=== PATIENT | female | born 1970 | race African-American/Black ===

== ENCOUNTER 2017-12-01 12:36 | Inpatient (IN) | payer OTHER ==
--- NOTE | 2017-12-01 13:28 | PDOC ---
History of Present Illness - General Chief Complaint: Wound Stated Complaint: LT SWOLLEN ANKLE Time Seen by Provider: 12/01/17 13:28 - History of Present Illness Initial Comments: 47 year old female with PMH of SLE (on steroids), asthma, and HTN presenting with left lower medial leg ulcer for the past 3 months. States that she has had this Ulcer back in september and thought she could treat it at home with wound care. It got progressively worse since then. She saw Dr. Cruz who gave her Keflex but she did not take any of it because she did not feel that it was infected at the time. She is coming in because of worsening pain to the site and slightly more painful lesion. Denies fevers, chills, nause,a vomiting, diarrhea, chest pain, SOB, headaches, or other symptoms. 12/01/17 14:10 Past History - Past Medical History Allergies/Adverse Reactions: Allergies Allergy/AdvReac Type Severity Reaction Status Date / Time aspirin Allergy Verified 12/01/17 12:37 ciprofloxacin [From Cipro] Allergy Verified 12/01/17 12:37 ciprofloxacin HCl Allergy Verified 12/01/17 12:37 [From Cipro] Home Medications: Ambulatory Orders Acetaminophen [Tylenol] 650 mg PO DAILY PRN 12/01/17 Albuterol Sulfate Inhaler - [Ventolin HFA Inhaler -] 1 puff IH 12/01/17 Amlodipine Besylate [Norvasc -] 5 mg PO DAILY 12/01/17 Hydroxychloroquine Sulfate [Plaquenil] 200 mg PO BID 12/01/17 Losartan Potassium mg PO DAILY 12/01/17 Montelukast Sodium [Singulair] 10 mg PO DAILY 12/01/17 Pantoprazole Sodium [Protonix] 40 mg PO DAILY 12/01/17 Warfarin Sodium [Coumadin] 8 mg PO DAILY 12/01/17 predniSONE [Deltasone -] 5 mg PO DAILY 12/01/17 Amox-Tr/K Cl [Augmentin - 875Mg Tablet] 1 tab PO BID #14 tablet 12/02/17 Anemia: Yes Asthma: Yes Cancer: No Cardiac Disorders: No CVA: No COPD: No CHF: No Dementia: Yes Diabetes: No GI Disorders: No Disorders: No HTN: Yes Hypercholesterolemia: No Liver Disease: No Seizures: No Thyroid Disease: No - Surgical History Abdominal Surgery: Yes Appendectomy: No Cardiac Surgery: No Cholecystectomy: No Lung Surgery: No Neurologic Surgery: No - Immunization History Td Vaccination: No TDAP Vaccination: No Immunization Up to Date: No - Suicide/Smoking/Psychosocial Hx Smoking Status: No Smoking History: Former smoker Years of Tobacco Use: 20 Have you smoked in the past 12 months: No Number of Cigarettes Smoked Daily: 0 If you are a former smoker, when did you quit?: 2007 Information on smoking cessation initiated: No Hx Alcohol Use: No Drug/Substance Use Hx: No Hx Substance Use Treatment: No Review of Systems - Review of Systems Constitutional: No: Chills, Diaphoresis, Fever HEENTM: No: Blurred Vision, Tearing Respiratory: No: Cough, Shortness of Breath Cardiac (ROS): Yes: Edema. No: Chest Pain ABD/GI: No: Diarrhea, Nausea, Vomiting : No: Burning, Dysuria, Discharge Musculoskeletal: No: Back Pain, Gout, Joint Pain Integumentary: Yes: Lesions. No: Bruising Neurological: No: Headache, Numbness Psychiatric: No: Anxiety, Depression Hematologic/Lymphatic: Yes: Blood Clots. No: Anemia *Physical Exam - Vital Signs Last Vital Signs Temp Pulse Resp BP Pulse Ox 98.3 F 94 H 18 134/104 99 12/01/17 12:38 12/01/17 12:38 12/01/17 12:38 12/01/17 12:38 12/01/17 12:38 - Physical Exam General Appearance: Yes: Nourished, Appropriately Dressed. No: Apparent Distress HEENT: positive: EOMI, ANGIE, Normal ENT Inspection, Normal Voice Neck: positive: Trachea midline, Normal Thyroid, Supple. negative: Tender, Rigid Respiratory/Chest: positive: Lungs Clear, Normal Breath Sounds. negative: Chest Tender, Respiratory Distress, Accessory Muscle Use Cardiovascular: positive: Regular Rhythm, Regular Rate Gastrointestinal/Abdominal: positive: Normal Bowel Sounds, Flat, Soft. negative : Tender Musculoskeletal: negative: Normal Inspection (TTP over left medial lower leg at area of 3 cm ulcer. No obvious drainage and only seems to extend into the dermal layer and punched out in appearance.), Decreased Range of Motion Extremity: positive: Normal Capillary Refill, Normal Range of Motion, Tender. negative: Normal Inspection Integumentary: positive: Normal Color, Dry, Warm Neurologic: positive: assurance senior manager insurance II-XII NML intact, Fully Oriented, Alert, Normal Mood/ Affect, Normal Response, Motor Strength 09/11 ED Treatment Course - LABORATORY CBC & Chemistry Diagram: 12/02/17 06:15 12/02/17 06:15 Medical Decision Making - Medical Decision Making 47 year old female with PMH of LL extremity DVTs presenting with left lower extremity slight edema and and left medial lower leg ulcer concerning for overlying infection. No systemic signs but given patient's chronic steroid use and autoimmune disorder (lupus) patient will be brought in for IV abx under Dr. Mason. 12/01/17 17:20 *DC/Admit/Observation/Transfer Diagnosis at time of Disposition: Ulcer of left lower leg Qualifiers: Non-pressure ulcer stage: unspecified non-pressure ulcer stage Qualified Code(s ): L97.929 - Non-pressure chronic ulcer of unspecified part of left lower leg with unspecified severity - Discharge Dispostion Disposition: HOME Condition at time of disposition: Stable - Prescriptions - Referrals - Patient Instructions - Post Discharge Activity
[2017-12-01 14:15] LABS: BASO % 0.6 % (0-2.0); EOS % 1.7 % (0-4.5); HEMATOCRIT 36.9 % (32.4-45.2); LYMPH % 22.4 % (8-40); MCH 28.6 pg (25.7-33.7); MCHC 32.7 g/dl (32.0-36.0); MEAN CELL VOLUME 87.5 fl (80-96); MEAN PLT VOLUME 8.3 fl (7.5-11.1); MONO % 7.1 % (3.8-10.2); NEUT % 68.2 % (42.8-82.8); PLATELET COUNT 143 K/MM3 (134-434); RBC 4.21 M/mm3 (3.60-5.2); WHITE BLOOD COUNT 5.7 K/mm3 (4.0-10.0)
[2017-12-01 14:43] LABS: ALBUMIN 3.3 g/dl (3.4-5.0); ANION GAP 8 (8-16); BILIRUBIN,TOTAL 0.4 mg/dL (0.2-1.0); BLOOD UREA NITROGEN 17 mg/dL (7-18); CALCIUM 8.3 mg/dL (8.5-10.1); CHLORIDE 108 mmol/L (98-107); CO2 26 mmol/L (21-32); CREATININE 1.2 mg/dL (0.55-1.02); GLUCOSE,RANDOM 67 mg/dL (74-106); POTASSIUM 3.5 mmol/L (3.5-5.1); SGOT/AST 17 U/L (15-37); SGPT/ALT 27 U/L (12-78); SODIUM 142 mmol/L (136-145); TOT PROT 7.3 g/dl (6.4-8.2)
[2017-12-01 14:44] LABS: ALK PHOS 76 U/L (45-117)
[2017-12-01 15:13] LABS: INR 1.86 (0.82-1.09)
[2017-12-01] MEDS ORDERED: CLINDAMYCIN 900 MG PREMIX IVPB 900 MG/50 ML BAG IVPB ONE ×2 (17:14→17:40)
[2017-12-01] MEDS ORDERED: VANCOMYCIN 1 GRAM (PRE-DOCKED) 1,000 MG/250 ML BAG IVPB ONE (17:15)
--- NOTE | 2017-12-01 17:16 | PDOC ---
Attending Attestation - Resident Resident Name: Willem Leahy - ED Attending Attestation I have performed the following: I have examined & evaluated the patient, The case was reviewed & discussed with the resident, I agree w/resident's findings & plan, Exceptions are as noted - Physicial Exam PE: 12/01/17 17:13 awake alert lungs clear bilaterally heart rrr no mrg abd soft nt nd. she has left leg swelling erythema there is a small well-circumscribed medial lower calf wound and does have a pink base no exudates distally she has 2+ DP and PT pulses. 12/01/17 17:14 - Medical Decision Making 12/01/17 17:14 47-year-old female history of this currently on immunomodulators here today complaining of left leg swelling and pain. Patient states she has had a wound there is a no fevers no chills but does have pain On exam she has left leg swelling erythema there is a small well-circumscribed EDL lower calf and does have a pink base no exudates distally she has 2+ DP and PT pulses Differential includes cellulitis, DVT, systemic infection. Due to the fact the patient is immunocompromised consider admission for IV antibiotics for observation Doppler to rule out basic lab work <Nicolasa Yanes - Last Filed: 12/01/17 17:12> - HPI HPI: 12/01/17 17:18 The patient is a 47-year-old female with past medical history of SLE, DVT, asthma, COPD, HTN, and LUPUS presents to the emergency department with a L. leg wound. The patient states the pain presented 2 days ago with increased swelling and warmth to the L. leg. The patient reports following up with Dr. Cruz on the 17 of November, she was prescribed Keflex, denies taking the abx. The patient reports she has an appointment for wound care next wednesday. Denies fever chills, cough or a headache. Denies chest pain or shortness of breath. Denies numbness, tingling or loss of sensation. Denies vertigo or dizziness. Denies urinary or bowel problems. Denies nausea, vomiting, diarrhea or constipation. Allergies: aspirin, ciprofloxacin HCl and ciprofloxacin Surgical history: Hysterectomy Social history: PCP: Dr. Blayne Cruz. - Medical Decision Making 12/01/17 17:18 Documentation prepared by Shavonne Dias, acting as medical massage therapist for Nicolasa Yanes MD. <Shavonne Dias - Last Filed: 12/01/17 17:18>
[2017-12-01] MEDS: VANCOMYCIN 1,000 MG in DEXTROSE 5%-WATER - 250 ML IVPB ONE ×2 (17:24→17:43)
--- NOTE | 2017-12-01 19:11 | HP ---
Admitting History and Physical - Primary Care Physician PCP: Dr. 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 Patient endorses 3 days LLE swelling and 2 days of pus, pain, warmth of the ulcer on the L medial ankle. Patient has the ulcer since September and was going to the wound center next Wednesday for the first time. She saw her PMD on 11/17 and was given keflex to take but she did not take it. She denies any fever, chill, numbness or tingling in LE, n/v, chest pain, shortness of breath. History Source: Patient Limitations to Obtaining History: No Limitations - Past Medical History Cardiovascular: Yes: Deep Vein Thrombosis (Most recent one in 2011. Has IVC filter.), HTN Pulmonary: Yes: Asthma, COPD ...LMP: 06/12/11 Rheumatology: Yes: Lupus - Past Surgical History Past Surgical History: Yes: Hysterectomy - Smoking History Smoking history: Former smoker Have you smoked in the past 12 months: No Aproximately how many cigarettes per day: 0 If you are a former smoker, when did you quit?: 2007 - Alcohol/Substance Use Hx Alcohol Use: No - Social History Usual Living Arrangement: Yes: With Child History of Recent Travel: No Home Medications - Allergies Allergies/Adverse Reactions: Allergies Allergy/AdvReac Type Severity Reaction Status Date / Time aspirin Allergy Verified 12/01/17 12:37 ciprofloxacin [From Cipro] Allergy Verified 12/01/17 12:37 ciprofloxacin HCl Allergy Verified 12/01/17 12:37 [From Cipro] - Home Medications Home Medications: Ambulatory Orders Acetaminophen [Tylenol] 650 mg PO DAILY PRN 12/01/17 Albuterol Sulfate Inhaler - [Ventolin Hfa Inhaler -] 1 puff IH 12/01/17 Amlodipine Besylate [Norvasc -] 5 mg PO DAILY 12/01/17 Hydroxychloroquine Sulfate [Plaquenil] 200 mg PO BID 12/01/17 Losartan Potassium mg PO DAILY 12/01/17 Montelukast Sodium [Singulair] 10 mg PO DAILY 12/01/17 Pantoprazole Sodium [Protonix] 40 mg PO DAILY 12/01/17 Warfarin Sodium [Coumadin] 8 mg PO DAILY 12/01/17 predniSONE [Deltasone -] 5 mg PO DAILY 12/01/17 Review of Systems - Review of Systems Constitutional: reports: No Symptoms Eyes: reports: No Symptoms HENT: reports: No Symptoms Neck: reports: No Symptoms Cardiovascular: reports: No Symptoms Respiratory: reports: No Symptoms Gastrointestinal: reports: No Symptoms Genitourinary: reports: No Symptoms Musculoskeletal: reports: No Symptoms Integumentary: reports: Wound Neurological: reports: No Symptoms Endocrine: reports: No Symptoms Physical Examination Vital Signs: Vital Signs Temperature 98.3 F 12/01/17 12:38 Pulse Rate 94 H 12/01/17 12:38 Respiratory Rate 18 12/01/17 12:38 Blood Pressure 134/104 12/01/17 12:38 O2 Sat by Pulse Oximetry (%) 99 12/01/17 12:38 Constitutional: Yes: Well Nourished, No Distress, Calm Eyes: Yes: Conjunctiva Clear, EOM Intact HENT: Yes: Atraumatic, Normocephalic Neck: Yes: Supple, Trachea Midline Cardiovascular: Yes: Regular Rate and Rhythm, S1, S2. No: Murmur Respiratory: Yes: CTA Bilaterally Gastrointestinal: Yes: Normal Bowel Sounds, Soft. No: Distention, Tenderness Edema: Yes Edema: LLE: Trace, RLE: Trace Peripheral Pulses WNL: Yes Integumentary: Yes: Other (LLE medial ulcer 2x2x0.2 circular shape) Neurological: Yes: Alert, Oriented Labs: CBC, BMP 12/01/17 14:06 12/01/17 14:06 Imaging - Results X-ray: Report Reviewed, Image Reviewed Assessment/Plan 47 yo F admitted for purulent leg ulcer with suspected cellulitis. Purulent lower left medial ulcer, w/ suspected cellulitis - Received clinamycin in ED - Cont. clinda and zosyn considering pt is immunosuppressed - ID consult Elevated Cr - Unknown baseline - Gentle hydration - Cont. to trend - Hold losartan Subtherapeutic INR - cont. coumadin and trend daily coag SLE - stable, cont. predisone and plaquineil h/o Multiple DVT - cont. coumadin asthma and COPD - stable - cont. singulair and ventolin HTN - cont. norvasc and hold losartan due to ELISEO FEN - NS 72cc/hr - sodium controlled diet dvt ppx: on coumadin dispo: monitor on med-surg Darrell Caballero PGY3 Visit type - Emergency Visit Emergency Visit: Yes Care time: The patient presented to the Emergency Department on the above date and was hospitalized for further evaluation of their emergent condition. - New Patient This patient is new to me today: Yes Date on this admission: 12/01/17 - Critical Care Critical Care patient: No Hospitalist Screening - Colonoscopy Questionnaire Colonoscopy Questionnaire: Colonoscopy Questionnaire - Patient: 50 - 75 years old and never had a screening colonoscopy: Unknown History of colon or rectal polyps, or CA: Unknown History of IBD, Crohn's disease or UC: Unknown History of abdominal radiation therapy as a child: Unknown - Relative: 1 with colon or rectal CA, or polyps at age 60 or younger: Unknown Colon or rectal CA diagnosed at age 45 or younger: Unknown Multiple relatives with colon or rectal CA: Unknown - Outcome: Screening Result: Negative Screen
[2017-12-01] MEDS ORDERED: ALBUTEROL SO4 8 GM HFA INHALER IH PRN (19:30)
--- NOTE | 2017-12-01 19:38 | PN ---
Teaching Attending Note Name of Resident: Darrell Caballero ATTENDING PHYSICIAN STATEMENT I saw and evaluated the patient. I reviewed the resident's note and discussed the case with the resident. I agree with the resident's findings and plan as documented. SUBJECTIVE: 47 y/o F with new left lower extremity cellulitis and ulcerations. Patient was prescribed antibiotics but did not take her medication. OBJECTIVE: GEN: A&Ox3 in no acute distress, afebrile HEENT: NC, PERRLA, EOMI CVS: RRR Lungs: CTA, no wheezing Abd: Soft, nontender, BS+, no guarding or rebound. Ext: nl ROM, pulse 2+, no edema Skin: LLE medial superficial ulceration, no drainage, no erythema appreciated, calor. CBCD WBC 5.7 K/mm3 (4.0-10.0) 12/01/17 14:06 RBC 4.21 M/mm3 (3.60-5.2) 12/01/17 14:06 Hgb 12.0 GM/dL (10.7-15.3) 12/01/17 14:06 Hct 36.9 % (32.4-45.2) 12/01/17 14:06 MCV 87.5 fl (80-96) 12/01/17 14:06 MCHC 32.7 g/dl (32.0-36.0) 12/01/17 14:06 RDW 15.0 % (11.6-15.6) 12/01/17 14:06 Plt Count 143 K/MM3 (134-434) 12/01/17 14:06 MPV 8.3 fl (7.5-11.1) 12/01/17 14:06 CMP Sodium 142 mmol/L (136-145) 12/01/17 14:06 Potassium 3.5 mmol/L (3.5-5.1) 12/01/17 14:06 Chloride 108 mmol/L (98-107) H 12/01/17 14:06 Carbon Dioxide 26 mmol/L (21-32) 12/01/17 14:06 Anion Gap 8 (8-16) 12/01/17 14:06 BUN 17 mg/dL (7-18) 12/01/17 14:06 Creatinine 1.2 mg/dL (0.55-1.02) H 12/01/17 14:06 Creat Clearance w eGFR 48.15 (>60) 12/01/17 14:06 Calcium 8.3 mg/dL (8.5-10.1) L 12/01/17 14:06 Total Bilirubin 0.4 mg/dL (0.2-1.0) 12/01/17 14:06 AST 17 U/L (15-37) 12/01/17 14:06 ALT 27 U/L (12-78) 12/01/17 14:06 Alkaline Phosphatase 76 U/L (45-117) 12/01/17 14:06 Total Protein 7.3 g/dl (6.4-8.2) 12/01/17 14:06 Albumin 3.3 g/dl (3.4-5.0) L 12/01/17 14:06 ASSESSMENT AND PLAN: LLE cellulitis and ulceration- Clindamycin and tylenol prn Case d/w resident and plans as documented.
[2017-12-01] MEDS ORDERED: PIPERACILLIN/TAZOB 3.375 GM 3.375 GM in DEXTROSE 5%-WATER - 50 ML IVPB ONE (19:45)
[2017-12-01] MEDS ORDERED: SODIUM CHLORIDE 500 ML IV STA (19:48)
[2017-12-01] MEDS ORDERED: MONTELUKAST NA 10 MG TABLET PO SCH (22:00)
[2017-12-01] MEDS: HYDROXYCHLOROQUINE SO4 200 MG TABLET (FP) PO SCH (22:16)
[2017-12-02 00:53] VITALS: BMI 40.1
[2017-12-02] MEDS: CLINDAMYCIN 600MG PREMIX IVPB 600 MG/50 ML BAG IVPB SCH ×2 (01:23→09:58)
[2017-12-02] MEDS ORDERED: PIPERACILLIN/TAZOB 3.375 GM 3.375 GM in DEXTROSE 5%-WATER - 50 ML IVPB ONE ×2 (02:00→08:00)
[2017-12-02] MEDS ORDERED: CLINDAMYCIN 600MG PREMIX IVPB 600 MG/50 ML BAG IVPB ONE ×2 (02:00→10:00)
[2017-12-02 08:14] LABS: HEMATOCRIT 35.2 % (32.4-45.2); HEMOGLOBIN 11.6 GM/dL (10.7-15.3); MCH 28.7 pg (25.7-33.7); PLATELET COUNT 142 K/MM3 (134-434); RBC 4.04 M/mm3 (3.60-5.2); WHITE BLOOD COUNT 3.9 K/mm3 (4.0-10.0)
[2017-12-02 08:22] LABS: INR 1.91 (0.82-1.09); PROTHROMBIN TIME (PATIENT) 21.6 SEC (9.7-13.0)
[2017-12-02 08:24] LABS: ACTIVATED PTT 33.2 SECONDS (25.2-36.5)
[2017-12-02 08:32] LABS: ANION GAP 9 (8-16); BLOOD UREA NITROGEN 16 mg/dL (7-18); CALCIUM 8.1 mg/dL (8.5-10.1); CHLORIDE 111 mmol/L (98-107); CO2 24 mmol/L (21-32); GLUCOSE,RANDOM 74 mg/dL (74-106); MAGNESIUM 2.1 mg/dL (1.8-2.4); PHOSPHOROUS 3.2 mg/dL (2.5-4.9); POTASSIUM 3.9 mmol/L (3.5-5.1); SODIUM 144 mmol/L (136-145)
[2017-12-02 08:33] LABS: CREATININE 0.9 mg/dL (0.55-1.02)
[2017-12-02] MEDS: HYDROXYCHLOROQUINE SO4 200 MG TABLET (FP) PO SCH (09:58)
[2017-12-02] MEDS ORDERED: PANTOPRAZOLE 40 MG TABLET (FP) PO SCH (10:00)
[2017-12-02] MEDS ORDERED: amLODIPine BESYLATE 5 MG TABLET (FP) PO SCH (10:00)
[2017-12-02] MEDS ORDERED: WARFARIN NA 7.5 MG TABLET (FP) PO SCH (10:00)
[2017-12-02] MEDS ORDERED: predniSONE 5 MG TABLET (UD) PO SCH (10:00)
[2017-12-02] MEDS ORDERED: ACETAMINOPHEN 325 MG TABLET (FP) PO PRN (11:53)
[2017-12-02 12:29] VITALS: BP 119/72; PULSE 75; TEMP 98.4
--- NOTE | 2017-12-02 13:03 | PN ---
Progress Note (short form) - Note Progress Note: ID Consult dictated Non healing L leg ulcer Cellulitus L LE Hx SLE on immunosupressive tx Quinolone allergy Substitute po Augmentin 875mg bid 10-14d Follow up Wound care center
--- NOTE | 2017-12-02 15:06 | CONS ---
INFECTIOUS DISEASE CONSULTATION DATE OF CONSULTATION: DATE OF DICTATION: 12/02/2017 Patient is a 47-year-old female with a history of lupus on Plaquenil and prednisone, evaluated for cellulitis and nonhealing ulcer of the left lower extremity. She initially developed a wound on her distal left lower extremity, which was pruritic. She began to scratch it. She subsequently developed an ulcer which became progressively bigger. She began to notice increasing pain and swelling around the ulceration and a purulent drainage. She was prescribed Keflex as an outpatient. However, she did not take the prescribed medication. She presented to the hospital where an x-ray was negative for osteomyelitis. Doppler exam was negative for DVT. She was empirically treated with clindamycin and Zosyn. She has a history of SLE and is on Plaquenil and prednisone. She denies prior history of serious soft tissue infection or history of MRSA. No associated fever or chills. PAST MEDICAL HISTORY: Positive for lupus, asthma, hypertension. PAST SURGICAL HISTORY: Status post hysterectomy. ALLERGIES: ASPIRIN and CIPROFLOXACIN. MEDICATIONS: Include Tylenol, Ventolin, Norvasc, losartan, Singulair, Protonix, Coumadin, Plaquenil, prednisone 5 mg. SOCIAL HISTORY: Former smoker. SYSTEMS REVIEW: Neurologic: No loss of consciousness, seizure activity, focal weakness. Cardiac: Negative chest pain or palpitations. Respiratory: Negative cough or sputum production. Gastrointestinal: Negative vomiting or diarrhea. Genitourinary: Negative for urinary tract infection. LABORATORY DATA: White count 3.9, hematocrit 35.2, platelet count 142. BUN 16, creatinine 0.9. C-reactive protein less than 0.3. Liver enzymes normal. ESR 55. PHYSICAL EXAMINATION: General: Patient is awake and alert, in no acute distress. Vital Signs: Temperature 98.4; blood pressure 119/72; pulse 75, regular; respirations 18 per minute. HEENT: Sclerae are anicteric. Heart: Sounds S1, S2. Lungs: Clear. Abdomen: Obese, soft, nontender. Left Lower Extremity: There is an approximately 1.5 cm diameter ulceration present above the left medial malleolus. There is no purulent drainage noted. No significant erythema surrounding the wound. The distal lower extremity is warm to touch. IMPRESSION: 1. Infected, chronic left lower extremity skin ulcer. 2. Cellulitis, left lower extremity. 3. History of lupus on immunosuppressive therapy. 4. QUINOLONE allergy. May substitute Augmentin 875 mg p.o. b.i.d. for 10-14 days, local wound care, follow up in the wound care center as an outpatient. Thank you for the kind referral. ALBERTO MEDINA M.D. [id number]
--- NOTE | 2017-12-02 16:18 | PN ---
Teaching Attending Note Name of Resident: Stacie Robertson ATTENDING PHYSICIAN STATEMENT I saw and evaluated the patient. I reviewed the resident's note and discussed the case with the resident. I agree with the resident's findings and plan as documented. SUBJECTIVE: Patient has no complaints. OBJECTIVE: Vital Signs Period Temp Pulse Resp BP Sys/Benavides Pulse Ox Last 24 Hr 97.8 F-98.8 F 68-75 18-20 119-133/69-85 98-99 HEART: S1S2, RRR LUNGS: Clear ABDOMEN: Obese, soft, non-tender, non-distended, normal BS EXTREMITIES: No edema. 1 cm round clean ulcer of medial lower left leg with no erythema, induration, drainage, tenderness Laboratory Results - last 24 hr 12/02/17 12/02/17 12/02/17 06:15 06:15 06:15 WBC 3.9 L RBC 4.04 Hgb 11.6 Hct 35.2 MCV 87.0 MCH 28.7 MCHC 33.0 RDW 15.0 Plt Count 142 MPV 9.0 PT with INR 21.60 H* INR 1.91 H PTT (Actin FS) 33.2 Sodium 144 Potassium 3.9 Chloride 111 H Carbon Dioxide 24 Anion Gap 9 BUN 16 Creatinine 0.9 Creat Clearance w eGFR > 60 Random Glucose 74 Calcium 8.1 L Phosphorus 3.2 Magnesium 2.1 ASSESSMENT AND PLAN: 1. Infected left leg venous ulcer with cellulitis - Significantly improved - Discontinue Zosyn, Clindamycin - Discharge on Augmentin - Has appointment at [facility]ound Center 12/08 2. Acute kidney injury - Improved with IV fluid and holding Cozaar 3. SLE - Continue predisone, Plaquenil 4. History of DVTs - Continue Coumadin 5. Asthma/COPD - Stable - Continue Singulair, albuterol 6. HTN - Continue Norvasc - Cozaar held secondary to ELISEO 7. Morbid obesity with BMI 40.1
--- NOTE | 2017-12-02 16:44 | DS ---
Physical Exam: SUBJECTIVE: Patient seen and examined. no complaints. left leg pain has improved. denies fevers, n/v. OBJECTIVE: Vital Signs Period Temp Pulse Resp BP Sys/Benavides Pulse Ox Last 24 Hr 97.8 F-98.8 F 68-75 18-20 119-133/69-85 98-99 PHYSICAL EXAM GENERAL: The patient is awake, alert, and fully oriented, in no acute distress. HEAD: Normal with no signs of trauma. EYES: PERRL, extraocular movements intact, sclera anicteric, conjunctiva clear. ENT: oropharynx clear without exudates, moist mucous membranes. NECK: Trachea midline, full range of motion, supple. LUNGS: Breath sounds equal, clear to auscultation bilaterally, no wheezes, no crackles, no accessory muscle use. HEART: Regular rate and rhythm, S1, S2 without murmur, rub or gallop. ABDOMEN: Soft, nontender, nondistended, normoactive bowel sounds, EXTREMITIES: 2+ radial and DP pulses, warm, well-perfused, no edema. left medial at ankle closed ulcer without surrounding erythema, tenderness, no underlying fluctuance. no discharge and skin is intact. NEUROLOGICAL: Cranial nerves II through XII grossly intact. Normal speech, gait normal. 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 Patient endorses 3 days LLE swelling and 2 days of pus, pain, warmth of the ulcer on the L medial ankle. Patient has the ulcer since September and was going to the wound center next Wednesday for the first time. She saw her PMD on 11/17 and was given keflex to take but she did not take it. She denies any fever, chill, numbness or tingling in LE, n/v, chest pain, shortness of breath. The pain improved. She remained afebrile without leucocytosis. Evaluated by ID and recommend augmentin 875 BID for 14 days. Pt has wound care follow-up this upcoming wednesday. INR in the hospital was sub-therapeutic, she was recommended to follow-up with her pcp to haver her inr repeated in few days to recheck levels. Minutes to complete discharge: 35 Discharge Summary Reason For Visit: ULCERATIVE LESION; LUPUS ERYTHEMATOSIS Condition: Stable - Instructions Diet, Activity, Other Instructions: You were evaluated for an ulcer on your left leg and acute kidney injury. Please follow-up with Dr. Cruz within one week for post-hospital evaluation and attend your appointment at [facility] on WednesdayDecember 08. Please speak with Dr. Cruz about your Coumadin dosing, your INR was not therapeutic while in the hospital, you will need to have your level tested again in a few days. Complete the antibiotic, Augmentin 1 tablet twice daily for 14 days, start taking it this afternoon (December 02 to end the last dose on December 16) . Drink plenty of water. Continue your home medications as prescribed. If you develop worsening leg pain, fevers, vomiting, redness or discharge at the ulcer site or any new or worsening symptoms please return to the hospital. Referrals: Blayne Cruz MD [Primary Care Provider] - Disposition: HOME - Home Medications Comprehensive Discharge Medication List: Ambulatory Orders Acetaminophen [Tylenol] 650 mg PO DAILY PRN 12/01/17 Albuterol Sulfate Inhaler - [Ventolin HFA Inhaler -] 1 puff IH 12/01/17 Amlodipine Besylate [Norvasc -] 5 mg PO DAILY 12/01/17 Hydroxychloroquine Sulfate [Plaquenil] 200 mg PO BID 12/01/17 Losartan Potassium mg PO DAILY 12/01/17 Montelukast Sodium [Singulair] 10 mg PO DAILY 12/01/17 Pantoprazole Sodium [Protonix] 40 mg PO DAILY 12/01/17 Warfarin Sodium [Coumadin] 8 mg PO DAILY 12/01/17 predniSONE [Deltasone -] 5 mg PO DAILY 12/01/17 Amox-Tr/K Cl [Augmentin - 875Mg Tablet] 1 tab PO BID #14 tablet 12/02/17 This patient is new to me today: Yes Date on this admission: 12/03/17 Emergency Visit: No Critical Care patient: No - Discharge Referral Referred to [facility] No
[2017-12-02] MEDS ORDERED: WARFARIN NA 3 MG, WARFARIN NA 5 MG PO SCH (18:00)
== END 2017-12-02 13:54 | disposition home or self-care (01) | DRG 383 ==
LOC: JER 12:36 → JERBED 17:37 → OBSVTOIN 19:01 → J7W 20:19
PROVIDERS: ADMIT Internal Medicine; ATTEND Internal Medicine
DX: L03.116 Cellulitis of left lower limb (principal); N17.9 Acute kidney failure, unspecified; D68.8 Other specified coagulation defects; L97.828 Non-pressure chronic ulcer of other part of left lower leg with other specified severity; M32.9 Systemic lupus erythematosus, unspecified; E66.01 Morbid (severe) obesity due to excess calories; Z68.41 Body mass index [BMI] 40.0-44.9, adult; I10 Essential (primary) hypertension; Z79.52 Long term (current) use of systemic steroids; Z87.891 Personal history of nicotine dependence; Z86.718 Personal history of other venous thrombosis and embolism; J44.9 Chronic obstructive pulmonary disease, unspecified; Z90.710 Acquired absence of both cervix and uterus
CPT/HCPCS: 36415; 73590-TC-LT-FY; 80048; 80053; 83735; 84100; 85025; 85027; 85610; 85730; 86140; 87040; 87070; 87186; 87205; 93971-TC; 99285-25; G0378

== ENCOUNTER 2017-12-31 12:11 | Emergency (ER) | payer OTHER ==
[2017-12-31 12:26] VITALS: BP 117/72; PULSE 91; TEMP 100.1; BMI 35.9
--- NOTE | 2017-12-31 14:00 | PDOC ---
History of Present Illness - General Chief Complaint: Ear Problem Stated Complaint: RIGHT EAR IN PAIN/FEVER Time Seen by Provider: 12/31/17 13:56 History Source: Patient Exam Limitations: Clinical Condition - History of Present Illness Initial Comments: 12/31/17 14:01 Patient with history of diabetes on meds present with complain of 2 day history of right ear pain and swelling. Patient reported fluid drainage from right ear. Denies any other symptoms Timing/Duration: other (2 days) Severity: moderate Past History - Past Medical History Allergies/Adverse Reactions: Allergies Allergy/AdvReac Type Severity Reaction Status Date / Time aspirin Allergy Verified 12/31/17 12:25 ciprofloxacin [From Cipro] Allergy Verified 12/31/17 12:25 ciprofloxacin HCl Allergy Verified 12/31/17 12:25 [From Cipro] Home Medications: Ambulatory Orders Acetaminophen [Tylenol] 650 mg PO DAILY PRN 12/01/17 Albuterol Sulfate Inhaler - [Ventolin HFA Inhaler -] 1 puff IH 12/01/17 Amlodipine Besylate [Norvasc -] 5 mg PO DAILY 12/01/17 Hydroxychloroquine Sulfate [Plaquenil] 200 mg PO BID 12/01/17 Losartan Potassium mg PO DAILY 12/01/17 Montelukast Sodium [Singulair] 10 mg PO DAILY 12/01/17 Pantoprazole Sodium [Protonix] 40 mg PO DAILY 12/01/17 Warfarin Sodium [Coumadin] 8 mg PO DAILY 12/01/17 predniSONE [Deltasone -] 5 mg PO DAILY 12/01/17 Amox-Tr/K Cl [Augmentin - 875Mg Tablet] 1 tab PO BID #14 tablet 12/02/17 Amox-Tr/K Cl [Augmentin - 875Mg Tablet] 1 tab PO BID #14 tablet 12/31/17 Neomycin/Polymyxin B/Hydrocort [Dqhzlnuj-Kkgmfhlov-Cl Ear Susp] 4 drop OT TID 5 Days #1 bottle 12/31/17 Anemia: Yes Asthma: Yes Cancer: No Cardiac Disorders: No CVA: No COPD: No CHF: No Dementia: Yes Diabetes: No GI Disorders: No Disorders: No HTN: Yes Hypercholesterolemia: No Liver Disease: No Seizures: No Thyroid Disease: No Other medical history: LUPUS, ULCER - Surgical History Abdominal Surgery: Yes Appendectomy: No Cardiac Surgery: No Cholecystectomy: No Lung Surgery: No Neurologic Surgery: No Orthopedic Surgery: No - Immunization History Td Vaccination: No TDAP Vaccination: No Immunization Up to Date: No - Suicide/Smoking/Psychosocial Hx Smoking Status: No Smoking History: Former smoker Years of Tobacco Use: 20 Have you smoked in the past 12 months: No Number of Cigarettes Smoked Daily: 0 If you are a former smoker, when did you quit?: 2007 Information on smoking cessation initiated: No Hx Alcohol Use: No Drug/Substance Use Hx: No Substance Use Type: None Hx Substance Use Treatment: No Review of Systems - Review of Systems Able to Perform ROS?: Yes Is the patient limited Albanian proficient: No Constitutional: No: Chills, Diaphoresis, Fever, Loss of Appetite, Malaise, Night Sweats, Weakness, Weight Stable, Unintentional Wgt. Loss, Unexplained wgt Loss, Other HEENTM: Yes: See HPI, Ear Pain (right ), Ear Discharge (right ear). No: Eye Pain, Blurred Vision, Tearing, Recent change in vision, Double Vision, Cataracts , Ocular Prothesis, Nose Pain, Nose Congestion, Tinnitus, Nose Bleeding, Hearing Loss, Throat Pain, Throat Swelling, Mouth Pain, Dental Problems, Difficulty Swallowing, Mouth Swelling, Other Respiratory: No: Cough, Orthopnea, Shortness of Breath, SOB with Exertion, SOB at Rest, Stridor, Wheezing, Productive cough, Hemoptysis, Other Cardiac (ROS): No: Chest Pain, Edema, Irregular Heart Rate, Lightheadedness, Palpitations, Syncope, Chest Tightness, Other ABD/GI: No: Abdominal Distended, Abd. Pain w/ defecation, Blood Streaked Bowels , Constipated, Diarrhea, Difficulty Swallowing, Nausea, Poor Appetite, Poor Fluid Intake, Rectal Bleeding, Vomiting, Indigestion, Abdominal cramping, Tarry Stools, Other Musculoskeletal: No: Back Pain, Gout, Joint Pain, Joint Swelling, Muscle Pain, Muscle Weakness, Neck Pain, Joint Stiffness, Other Integumentary: No: Bruising, Change in Color, Change in Hair/Nails, Dryness, Erythema, Flushing, Lesions, Lumps, Pallor, Pruritus, Rash, Sweating, Other All Other Systems: Reviewed and Negative *Physical Exam - Vital Signs Last Vital Signs Temp Pulse Resp BP Pulse Ox 100.1 F H 91 H 18 117/72 99 12/31/17 12:22 08/24/18 12:22 12/31/17 12:22 12/31/17 12:22 12/31/17 12:22 - Physical Exam Comments: 12/31/17 14:02 GENERAL: Well developed, well nourished. Awake and alert. No acute distress. HEENT: Moderate amount of fluid with mild swelling in right external ear canal. Mild erythema in external ear canal. Left ear normal.Normocephalic, atraumatic. PERRLA, EOMI. No conjunctival pallor. Sclera are non-icteric. Moist mucous membranes. Oropharynx is clear. NECK: Supple. Full ROM. No JVD. Carotid pulses 2+ and symmetric, without bruits. No thyromegaly. No lymphadenopathy. CARDIOVASCULAR: Regular rate and rhythm. No murmurs, rubs, or gallops. Distal pulses are 2+ and symmetric. PULMONARY: No evidence of respiratory distress. Lungs clear to auscultation bilaterally. No wheezing, rales or rhonchi. ABDOMINAL: Soft. Non-tender. Non-distended. No rebound or guarding. No organomegaly. Normoactive bowel sounds. MUSCULOSKELETAL Normal range of motion at all joints. No bony deformities or tenderness. No CVA tenderness. EXTREMITIES: No cyanosis. No clubbing. No edema. No calf tenderness. SKIN: Warm and dry. Normal capillary refill. No rashes. No jaundice. NEUROLOGICAL: Alert, awake, appropriate. Cranial nerves 2-12 intact. No deficits to light touch and temperature in face, upper extremities and lower extremities. No motor deficits in the in face, upper extremities and lower extremities. Normoreflexic in the upper and lower extremities. Normal speech. Toes are down- going bilaterally. Gait is normal without ataxia. PSYCHIATRIC: Cooperative. Good eye contact. Appropriate mood and affect. General Appearance: Yes: Nourished, Appropriately Dressed. No: Apparent Distress Medical Decision Making - Medical Decision Making 12/31/17 14:03 Patient with history of diabetes presenting with complain of 2 days history of right ear pain and now with fever. Exam shows moderate swelling and fluid and right ear canal. Patient stable for outpatient treatment with ENT follow-up *DC/Admit/Observation/Transfer Diagnosis at time of Disposition: Otitis externa Qualifiers: Otitis externa type: unspecified type Chronicity: acute Laterality: right Qualified Code(s): H60.501 - Unspecified acute noninfective otitis externa, right ear - Discharge Dispostion Disposition: HOME Condition at time of disposition: Stable Decision to Admit order: No - Prescriptions Prescriptions: Amox-Tr/K Cl [Augmentin - 875Mg Tablet] 1 tab PO BID #14 tablet Neomycin/Polymyxin B/Hydrocort [Hgeecbik-Jjqdyqazm-Jg Ear Susp] 4 drop OT TID 5 Days #1 bottle - Referrals Referrals: Blayne Cruz MD [Primary Care Provider] - Elio Hammond MD [Staff Physician] - - Patient Instructions Printed Discharge Instructions: Otitis Externa, DI for Otitis Externa Additional Instructions: Take medication as prescribed for symptoms. Take Tylenol as needed for pain. Follow-up will referred ENT for follow-up within next 5 days - Post Discharge Activity
== END 2017-12-31 14:25 | disposition home or self-care (01) ==
LOC: JERFT 12:11
DX: H60.501 Unspecified acute noninfective otitis externa, right ear (principal); J45.909 Unspecified asthma, uncomplicated; I10 Essential (primary) hypertension; E11.9 Type 2 diabetes mellitus without complications; Z87.39 Personal history of other diseases of the musculoskeletal system and connective tissue
CPT/HCPCS: 11042; 29581-LT; 99281-25; A4649; A6197

== ENCOUNTER 2019-03-11 13:53 | Emergency (ER) | payer OTHER ==
[2019-03-11 14:07] VITALS: BMI 34.0
[2019-03-11] MEDS ORDERED: SODIUM CHLORIDE 1,000 ML IV SCH (14:15)
--- NOTE | 2019-03-11 14:34 | PDOC ---
History of Present Illness - General Chief Complaint: Difficulty with Vision Stated Complaint: EYE SIGHT FADING Time Seen by Provider: 03/11/19 14:15 History Source: Patient Exam Limitations: No Limitations - History of Present Illness Initial Comments: 03/11/19 14:33 Paul Villegas is a 48F with PMH SLE on Cellcept and Plaquenil with known L eye exotropia, APLS on Coumadin with known DVT, 3 weeks of conjunctivitis, presenting with worsening vision in L eye. Patient has seen ophthalmology for 3 weeks of conjuctivitis, had to stop Cellcept to help clear infection, eye was itchy but she has recovered well with eye drops, had MORAN related to eye pain. 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 Yesterday was having worsening vision, noticed that she was seeing black spots at bottom of vision and lines, today even worse which prompted ED visit. Denies chemical exposure to eye, head trauma, history of PR or CVA. Denies fever/chills, N/V/C/D, chest pain, SOB, urinary sx, abd pain. PSH: L nephrectomy at [facility], L partial hysterectomy at [facility] 2011 Past History - Past Medical History Allergies/Adverse Reactions: Allergies Allergy/AdvReac Type Severity Reaction Status Date / Time aspirin Allergy Verified 01/14/18 17:30 ciprofloxacin [From Cipro] Allergy Verified 03/11/19 14:04 ciprofloxacin HCl Allergy Verified 03/11/19 14:04 [From Cipro] Home Medications: Ambulatory Orders Acetaminophen [Tylenol] 650 mg PO DAILY PRN 12/01/17 Albuterol Sulfate Inhaler - [Ventolin HFA Inhaler -] 1 puff IH DAILY 12/01/17 Amlodipine Besylate [Norvasc -] 5 mg PO DAILY 12/01/17 Hydroxychloroquine Sulfate [Plaquenil] 200 mg PO BID 12/01/17 Losartan Potassium 25 mg PO DAILY 12/01/17 Montelukast Sodium [Singulair] 10 mg PO DAILY 12/01/17 Pantoprazole Sodium [Protonix] 40 mg PO DAILY 12/01/17 Warfarin Sodium [Coumadin] 8 mg PO DAILY 12/01/17 predniSONE [Deltasone -] 5 mg PO DAILY 12/01/17 Neomycin/Polymyxin B/Hydrocort [Isnfelnp-Ejdwnsgai-Mj Ear Susp] 4 drop OT TID 5 Days #1 bottle 12/31/17 Anemia: Yes Asthma: Yes Cancer: No Cardiac Disorders: No CVA: No COPD: No CHF: No Dementia: No Diabetes: No GI Disorders: No Disorders: No HTN: Yes Hypercholesterolemia: No Liver Disease: No Seizures: No Thyroid Disease: No - Surgical History Abdominal Surgery: Yes Appendectomy: No Cardiac Surgery: No Cholecystectomy: No Lung Surgery: No Neurologic Surgery: No Orthopedic Surgery: No - Immunization History Td Vaccination: No TDAP Vaccination: No Immunization Up to Date: No - Psycho Social/Smoking Cessation Hx Smoking Status: No Smoking History: Never smoked Years of Tobacco Use: 20 Have you smoked in the past 12 months: No Number of Cigarettes Smoked Daily: 0 If you are a former smoker, when did you quit?: 2007 Hx Alcohol Use: No Drug/Substance Use Hx: No Substance Use Type: None Hx Substance Use Treatment: No Review of Systems - Review of Systems Able to Perform ROS?: Yes Constitutional: No: Symptoms Reported HEENTM: Yes: Eye Pain, Blurred Vision, Recent change in vision, Double Vision ( chronic). No: Cataracts, Tinnitus, Mouth Pain, Dental Problems Respiratory: No: Symptoms reported Cardiac (ROS): No: Symptoms Reported ABD/GI: No: Symptoms Reported : No: Symptoms Reported Musculoskeletal: No: Symptoms Reported Integumentary: No: Symptoms Reported Neurological: No: Symptoms reported Endocrine: No: Symptoms Reported Hematologic/Lymphatic: No: Symptoms Reported All Other Systems: Reviewed and Negative *Physical Exam - Vital Signs Last Vital Signs Temp Pulse Resp BP Pulse Ox 98.4 F 77 18 114/75 97 03/11/19 14:00 03/11/19 14:00 03/11/19 14:00 03/11/19 14:00 03/11/19 14:00 - Physical Exam Comments: 03/11/19 15:23 Ocular Exam: L eye exotropia with upwards deviation OD: 20/200 OS: worse than 20/200 No change in acuity with glasses. EOMI no scleral icterus, mild bilateral conjuctivitis PERRL Right eye visual avalos grossly to finger test. Left eye visual avalos grossly intact to finger test, patient reports only being able to see color blocks with little detail with brown spots and lines in field. POCUS reveals L eye vitreous detachment with optic nerve 2.3mm. General Appearance: Yes: Nourished, Appropriately Dressed. No: Apparent Distress HEENT: positive: EOMI, ANGIE, Normal Voice, Pharynx Normal, Hearing Grossly Normal. negative: Symmetrical (L eye exotropia), Scleral Icterus (R), Scleral Icterus (L) Neck: positive: Supple. negative: Lymphadenopathy (R), Lymphadenopathy (L) Respiratory/Chest: positive: Lungs Clear, Normal Breath Sounds. negative: Respiratory Distress, Accessory Muscle Use, Crackles, Rhonchi, Stridor, Wheezing Cardiovascular: positive: Regular Rhythm, Regular Rate Musculoskeletal: positive: Normal Inspection. negative: CVA Tenderness Extremity: positive: Normal Capillary Refill, Normal Inspection, Normal Range of Motion Integumentary: positive: Normal Color, Dry, Warm Neurologic: positive: Fully Oriented, Alert, Normal Mood/Affect, Normal Response ED Treatment Course - LABORATORY CBC & Chemistry Diagram: 03/11/19 14:31 03/11/19 14:31 Medical Decision Making - Medical Decision Making 03/11/19 14:33 Paul Villegas is a 48F with PMH SLE on Cellcept and Plaquenil with known L eye exotropia, APLS on Coumadin with known DVT, 3 weeks of conjunctivitis, presenting with worsening vision in L eye. Getting CT head to r/o stroke, stroke order set obtained. POCUS L eye shows vitreous detachment. Will transfer to [place] for further optho care after CT head. 03/11/19 15:36 CT non/con shows [id number] loss without CT evidence of acute intracranial pathology. Labs notable for Cr 2.9 up from 2.5 2 weeks ago. Contacting [facility] at this time. 03/11/19 16:00 Dr. Bro spoke to Dr. Cardenas at [facility] optho, agrees to transfer via BLS for further evaluation and intervention of vitreous detachment. ECG shows NSR HR 71 QRS 96 QTc 473, no ischemic changes or TWI Discharge - Discharge Information Problems reviewed: Yes Clinical Impression/Diagnosis: Vitreous detachment of left eye Condition: Stable Disposition: TRANSFER ACUTE CARE/OTHER HOSP - Follow up/Referral Referrals: Blayne Cruz MD [Primary Care Provider] - - Patient Discharge Instructions - Post Discharge Activity
[2019-03-11 14:44] LABS: BASO % 0.8 % (0-2.0); EOS % 3.2 % (0-4.5); HEMATOCRIT 33.5 % (32.4-45.2); HEMOGLOBIN 10.7 GM/dL (10.7-15.3); LYMPH % 41.6 % (8-40); MCH 27.7 pg (25.7-33.7); MCHC 31.8 g/dl (32.0-36.0); MEAN CELL VOLUME 87.1 fl (80-96); MEAN PLT VOLUME 8.3 fl (7.5-11.1); MONO % 9.4 % (3.8-10.2); PLATELET COUNT 194 K/MM3 (134-434); RBC 3.85 M/mm3 (3.60-5.2); RDW 13.8 % (11.6-15.6); WHITE BLOOD COUNT 4.1 K/mm3 (4.0-10.0)
[2019-03-11 14:59] LABS: INR 1.71 (0.83-1.09); PROTHROMBIN TIME (PATIENT) 20.3 SEC (9.7-13.0)
[2019-03-11 15:02] LABS: ACTIVATED PTT 32.6 SECONDS (25.2-36.5)
--- NOTE | 2019-03-11 15:05 | PDOC ---
Attending Attestation - Resident Resident Name: Geraldo Hsu - ED Attending Attestation I have performed the following: I have examined & evaluated the patient, The case was reviewed & discussed with the resident, I agree w/resident's findings & plan - HPI HPI: 03/11/19 15:58 Paul Villegas is a 48F with PMH SLE on Cellcept and Plaquenil with known L eye exotropia, APLS on Coumadin with known DVT, 3 weeks of conjunctivitis, presenting with worsening vision in L eye x 1 day. Patient has seen ophthalmology for 3 weeks of conjuctivitis, had to stop Cellcept to help clear infection, eye was itchy but she has recovered well with eye drops, had MORAN related to eye pain. 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 Yesterday was having worsening vision, noticed that she was seeing black and dark lines at bottom of vision field today even worse which prompted ED visit. 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 ciliary injection bilaterally. CN II-XII intact, speech clear. KENDRICK x4. no respiratory distress. abdomen soft nontender. WWP, normal color for ethnicity. 03/11/19 15:01 03/11/19 16:01 - Medical Decision Making 03/11/19 14:59 Vital Signs Temp Pulse Resp BP Pulse Ox 98.4 F 77 18 114/75 97 03/11/19 14:00 03/11/19 14:00 03/11/19 14:00 03/11/19 14:00 03/11/19 14:00 ddx, retinal detachment, vitreous tear/hemorrhage. CVA, vasculitis visual acuity 20/200 bilaterally, left worse than right. left usually better. recently treated for conjunctivitis, no e/o infection with some ciliary injection noted b/l. CT head to eval for CVA/mass pocus ocular with left eye vitreous tear, crosses midline. optic nerve sheath measuring 2.5mm at 3mm posterior to globe. transfer to [facility] for ophtho cs, accepted by ophtho at [facility] Dr Cardenas 03/11/19 15:59 03/11/19 16:00
[2019-03-11 15:21] LABS: ALBUMIN 3.2 g/dl (3.4-5.0); ALK PHOS 105 U/L (45-117); ANION GAP 8 MMOL/L (8-16); BILIRUBIN,TOTAL 0.2 mg/dL (0.2-1); BLOOD UREA NITROGEN 28.1 mg/dL (7-18); CALCIUM 8.7 mg/dL (8.5-10.1); CHLORIDE 107 mmol/L (98-107); CHOLESTEROL 179 mg/dL (50-200); CO2 25 mmol/L (21-32); CREATININE 2.9 mg/dL (0.55-1.3); GLUCOSE,RANDOM 77 mg/dL (74-106); HDL CHOLESTEROL 54 mg/dL (40-60); LDL CHOLESTEROL (ONLY SJRH) 103 mg/dL (5-100); POTASSIUM 4.2 mmol/L (3.5-5.1); SGOT/AST 24 U/L (15-37); SGPT/ALT 20 U/L (13-61); SODIUM 139 mmol/L (136-145); TOT PROT 7.3 g/dl (6.4-8.2); TRIGLYCERIDES 89 mg/dL (0-150)
[2019-03-11 17:46] VITALS: BP 118/72; PULSE 76; TEMP 97.9
--- NOTE | 2019-03-13 10:24 | EKG ---
Test Reason : Blood Pressure : / mmHG Vent. Rate : 071 BPM Atrial Rate : 071 BPM P-R Int : 152 ms QRS Dur : 096 ms QT Int : 436 ms P-R-T Axes : 039 007 014 degrees QTc Int : 473 ms NORMAL SINUS RHYTHM SEPTAL INFARCT (CITED ON OR BEFORE 11-MAR-2019) ABNORMAL ECG WHEN COMPARED WITH ECG OF 25-JUL-2011 03:11, NO SIGNIFICANT CHANGE WAS FOUND Confirmed by IFEOMA PEREZ, REYNA ([id number]) on 03/13/2019 10:23:38 AM Referred By: Confirmed By:REYNA DIA MD
== END 2019-03-11 18:10 | disposition short-term general hospital (02) ==
LOC: JER 13:53
PROC: 4A07X0Z Measurement of Visual Acuity, External Approach (ICD-10-PCS; principal; 2019-03-11)
PROC: 4A07X0Z Measurement of Visual Acuity, External Approach (ICD-10-PCS; 2019-03-11)
PROC: B84 Imaging, Eye, Ultrasonography (ICD-10-PCS; 2019-03-11)
DX: H43.812 Vitreous degeneration, left eye (principal); H50.10 Unspecified exotropia; H10.33 Unspecified acute conjunctivitis, bilateral; I10 Essential (primary) hypertension; J45.909 Unspecified asthma, uncomplicated; D64.9 Anemia, unspecified; Z86.718 Personal history of other venous thrombosis and embolism; Z79.01 Long term (current) use of anticoagulants; M32.9 Systemic lupus erythematosus, unspecified; D68.61 Antiphospholipid syndrome; Z88.6 Allergy status to analgesic agent; Z88.1 Allergy status to other antibiotic agents
CPT/HCPCS: 36415; 70450-TC; 76512; 80053; 80061; 82550; 82553; 83721; 84478; 84484; 85025; 85610; 85651; 85730; 86140; 86850; 86900; 86901; 92081; 93005; 93010; 99173; 99285-25; J7030

== ENCOUNTER 2020-02-10 01:49 | Emergency (ER) | payer OTHER ==
--- OUTSIDE RECORDS SUMMARY | 2020-02-10 02:02 | XMS ---
:1970 Author Organization [facility] Providers Name Role Phone NICK WISDOM Unavailable Unavailable MENDOZA TOÑO, TÑOO Unavailable Unavailable Rubén Mitchell Unavailable [phone] [facility], MHAW9 Unavailable Unavailable HASMUKH PORTILLO Unavailable Unavailable Mendoza, Toño Unavailable Unavailable Mendoza, Toño Unavailable Unavailable Mendoza, Toño Unavailable Unavailable Mendoza, Toño Unavailable Unavailable Mendoza, Toño Unavailable Unavailable Mendoza, Toño Unavailable Unavailable [facility], STJ9 Unavailable Unavailable LAURA EDMOND Unavailable Unavailable ANA M SAUER Unavailable Unavailable LESTER, OLAYINKA Unavailable Unavailable Re-disclosure Warning The records that you are about to access may contain information from federally- assisted alcohol or drug abuse programs. If such information is present, then the following federally mandated warning applies: This information has been disclosed to you from records protected by federal confidentiality rules (42 CFR part 2). The federal rules prohibit you from making any further disclosure of this information unless further disclosure is expressly permitted by the written consent of the person to whom it pertains or as otherwise permitted by 42 CFR part 2. A general authorization for the release of medical or other information is NOT sufficient for this purpose. The Federal rules restrict any use of the information to criminally investigate or prosecute any alcohol or drug abuse patient.The records that you are about to access may contain highly sensitive health information, the redisclosure of which is protected by Article 27-F of the [facility] Public Health law. If you continue you may haveaccess to information: Regarding HIV / AIDS; Provided by facilities licensed or operated by the [facility] Office of Mental Health; or Provided by the [facility] Office for People With Developmental Disabilities. If such information is present, then the following [facility] mandated warning applies: This information has been disclosed to you from confidential records which are protected by state law. State law prohibits you from making any further disclosure of this information without the specific written consent of the person to whom it pertains, or as otherwise permitted by law. Any unauthorized further disclosure in violation of state law may result in a fine or halfway sentence or both. A general authorization for the release of medical or other information is NOT sufficient authorization for further disclosure. Allergies and Adverse Reactions Type Description Substance Reaction Status Data Source(s ) Drug allergy ciprofloxacin ciprofloxacin [facility] on Drug allergy Aspirin [facility] Propensity to Propensity to Propensity to NEXTG EN ([facility] adverse adverse reactions adverse reactions [facility] Medical reactions (disorder) (disorder) Center) (disorder) Encounters Encounter Providers Location Date Indications Data Source(s ) Outpatient Attender: BANDAR 01/10/2020 H43.12 [facility] HASMUKHAdmitter: 06:00:00 AM Health Care [email or web address] HASMUKHReferrer: HASMUKH PORTILLO H43.12 Outpatient Attender: CAMACHO 01/05/2020 01:29:00 Z03.818 [facility] PM [facility] ANA M SAUER Corpora tion Z03.818 Outpatient Attender: BANDAR 12/27/2019 06:00:00 H43.12 [facility] HASMUKHAdmitter: BANDAR AM [facility] HASMUKHReferrer: [employer] HASMUKH H43.12 Outpatient Attender: CAMACHO 12/22/2019 06:00:00 Z03.818 [facility] ANA M Cantu.Admitter: AM [facility] ANA M SAUER. Corpora tion Z03.818 Outpatient Attender: MHAW9 [facility] 12/09/2019 12:53:54 PM [facility] Patient admitted. Outpatient Attender: MHAW9 [facility] 07/28/2019 07:05:42 AM [facility] Patient admitted. Outpatient Attender: TOÑO MENDOZA 06/01/2019 [facility] TOÑOAdmitter: 04:48:[address] [facility] TOÑO MENDOZA MAANUPAMIOReferrer: TOÑO LUNDBERG Attender: Toñomorales Mendoza [facility] 06/01/2019 NEXTGEN ([facility] 04:48:00 PM EST [facility] 06/01/2019 [place]) 04:48:00 PM EST Outpatient Attender: MHAW9 [facility] 05/31/2019 [facility] ([facility] 03:50:39 PM EST [facility]) Patient admitted. Outpatient Attender: STJ9 [facility] 05/31/2019 03:50:37 PM [facility] ([facility] EST [facility]) Patient admitted. Emergency Attender: ALYX, 03/11/2019 EYE PROBLEM [facility] NICKAdmitter: 06:54:00 PM EDT [facility] Care NICK WISDOM [facility] EYE PROBLEM Outpatient 01/13/2019 04:29:26 PM EDT [facility] Patient admitted. Outpatient 01/13/2019 04:29:22 PM EDT [facility] Patient admitted. Outpatient 01/13/2019 04:29:16 PM EDT [facility] Patient admitted. Outpatient 01/13/2019 04:29:12 PM EDT [facility] Patient admitted. Outpatient 01/13/2019 04:28:57 PM EDT [facility] Patient admitted. Outpatient 01/13/2019 04:28:53 PM EDT [facility] Patient admitted. Outpatient Attender: LESTER, 01/05/2019 12:59:00 R91.1 [facility] ealt Care ZVIReferrer: LAURA June R91.1 Outpatient Attender: LESTER, 01/05/2019 06:00:00 R91.1 [facility] ZVIAdmitter: LESTER, AM EDT H ealt Care ZVIReferrer: [employer]ffect BABS EDMONDFRANCINE R91.1 Outpatient Attender: MAYITO 12/07/2018 06:57:00 R19.0 0 [facility] GIZELKAAdmitter: AM EDT Health C are [email or web address] GIZELKAReferrer: MAYITOLAURA R19.00 Outpatient Attender: MAYITO 12/07/2018 06:00:00 R19.0 0 [facility] GIZELKAAdmitter: AM EDT Health C are [email or web address] GIZELKAReferrer: MAYITOLAURA R19.00 Outpatient Attender: MAYITO 11/30/2018 R19.00 Z01.818 [facility] JORDANAKAAdmitter: 01:14:00 PM EDT [facility] Care MAYITO, [employer] GIZELKAReferrer: BABS EDMONDFRANCINE R19.00 Z01.818 Outpatient 08/03/2018 [facility] 11:16:00 AM EDT Medical C enter Outpatient 08/03/2018 [facility] 12:00:00 AM EDT Medical C enter OutpatientOFFICE/OU Attender: [facility] 06/02/2018 NEXTGEN ([facility] VISIT, AMPARO Mitchell 09:28:00 AM [facility] 06/02/2018 Center) 09:28:00 AM EST Attender: [facility] 09/19/2015 NEXT GEN ([facility] 03:20:00 PM EDT [facility] 09/19/2015 [place]) 03:20:00 PM EDT Medications Medication Brand Start Product Dose Route Administrative Pharmacy [facility] Indications Reaction Description Data Name Date Form Instructions Instructions Source(s) Tropicamide [place] MG UNK active [place] amide [facility] 0.5 % op amide 2018 0.5 % [facility] 0.5 % 08:35: 15 mL; Give Healt h op 57 PM to provider Care EDT to admin Corporatio n Medication administered onsite Phenylephrine Phenylephrine 03/11/2019 0 UNK active Phenylephrine [place] HCL 2. HCL 2. 08:35:57 PM MG HCL 2.5% [facility] EDT 3 ML; Give to Health Care provider to Corporat ion admin Medication administered onsite Metoprolol XL [50 [id number] 12/07/2018 completed [place] mg]: 1 Tablet 12:00:00 AM [facility] Oral DAILY [facility] TaKaDu Prednisone 5 MG Prednisone [5 12/07/2018 completed [place] Oral Tablet mg Tablet]: 1 12:00:00 AM [facility] Prednisone [5 mg Tablet Oral [facility] Health Care Tablet]: 1 Tablet DAILY IN [facility] Oral DAILY IN MORNING MORNING Warfarin Sodium Coumadin 12/07/2018 completed [place] 10 MG Oral Tablet (Warfarin) [10 12:00:00 AM [facility] Coumadin mg Tablet]: 1 [facility] (Warfarin) [10 mg Tablet [employer] Corporation Tablet]: 1 Tablet DAILY Oral DAILY Nifedipine [60 [id number] 12/07/2018 completed [place] mg]: 1 Tablet 12:00:00 AM [facility] Oral DAILY [facility] [employer] Hydroxychloroquin Plaquenil 12/07/2018 completed [place] e Sulfate 200 MG (Hydroxychloro 12:00:00 AM [facility] Oral Tablet quine) [200 mg [facility] Plaquenil Tablet]: 1 Jose Elias oration (Hydroxychloroqui Tablet Oral ne) [200 mg DAILY Tablet]: 1 Tablet Oral DAILY Ranitidine 150 MG Ranitidine 12/07/2018 completed [place] Oral Capsule [150 mg 12:00:00 AM [facility] Ranitidine [150 Capsule]: 1 [facility] mg Capsule]: 1 Capsule [employer] Capsule Oral DAILY DAILY Clotrimazole 10 clotrimazole 1 06/02/2018 TOPICA active apply NEXTGEN MG/ML Topical % topical 12:00:00 AM L by (Saint Solution solution EST topica Joaquín hs clotrimazole 1 % l Med ical topical solution route Ce nter) 2 times every day to the [facility] ed and surrou nding areas of skin in the mornin g and evenin g Acetaminophen 325 Acetaminophen completed [place] MG Oral Tablet [325 mg Co unty Acetaminophen Tablet]: 975 Health Care [325 mg Tablet]: MG Oral Q6HRS Corporation 975 MG Oral Q6HRS Discharge completed [facility] Medications are Coun ty unavailable. [facility] Unable to Unable to 999 UNK completed Unabl e [place] Obtain/Drug Names Obtain/Drug MG to County Unknown Names Unknown Obtain H ealt Care /Drug Corporation Names Unknow n Oxycodone Oxycodone [5 completed [place] Hydrochloride 5 mg Tablet]: 5 County MG Oral Tablet MG Oral Q4HPRN Health Care Oxycodone [5 mg PRN Pain Corporation Tablet]: 5 MG Oral Q4HPRN PRN Pain Simethicone 80 MG Gas Relief completed [place] Chewable Tablet (Simethicone) [facility] Gas Relief [80 mg Health Care (Simethicone) [80 Tablet]: 80 MG Corporation mg Tablet]: 80 MG Oral Q8HRS PRN Oral Q8HRS PRN Gas Gas sennosides, ASSISTED Senna Lax completed [place] 8.6 MG Oral (Sennosides) [facility] Tablet Senna Lax [8.6 mg Health Care (Sennosides) [8.6 Tablet]: 8.6 Corporation mg Tablet]: 8.6 MG Oral Q8HRS MG Oral Q8HRS Insurance Providers Payer name Policy type Policy ID Covered Covered republican's Policy P juan / Coverage republican ID relationship to Valero Inf ormation type valero [facility] MEDICAID [id number] [facility] [id number] PLANS HARRAH [id number] self [id number] HEALTH O [place] O [id number] HEALTH UNK UNK UNK Problems, Conditions, and Diagnoses Code Display Name Description Problem Type Effective Data Sour ce(s) Dates M32.9 Systemic lupus SYSTEMIC LUPUS Diagnosis 01/10/2020 [facility] dianelys erythematosus, ERYTHEMATOSUS, 06:00:00 AM [facility] Health unspecified UNSPECIFIED [employer] K21.9 Gastro-esophageal GASTRO-ESOPHAGEAL Diagnosis 01/10/2020 [place] reflux disease REFLUX DISEASE 06:00:00 AM [facility] Health without esophagitis WITHOUT ESOPHAGITIS [employer]roupT CoTweet J45.909 Unspecified asthma, UNSPECIFIED ASTHMA, Diagnosis [place] uncomplicated UNCOMPLICATED 06:00:00 AM [facility] RecroupT CoTweet I10 Essential (primary) ESSENTIAL (PRIMARY) Diagnosis [place] hypertension HYPERTENSION 06:00:00 AM [facility] RecroupT CoTweet Z90.5 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 06:00:00 AM [facility] JAYS [employer] Z85.528 Personal history of PERSONAL HISTORY OF Diagnosis [place] other malignant OTHER MALIGNANT 06:00:00 AM [employer] neoplasm of kidney NEOPLASM OF KIDNEY T [facility] True[employer] D68.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 [place] syndrome SYNDROME 06:00:00 [facility] [employer] 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 [place] use of USE OF 06:00:00 AM [facility] anticoagulants ANTICOAGULANTS EDT [facility] [employer] Z86.718 Personal history of PERSONAL HISTORY OF Diagnosis [place] other venous OTHER VENOUS 06:00:00 AM [facility] thrombosis and THROMBOSIS AND EDT [facility] embolism EMBOLISM [employer] H35.342 Macular cyst, hole, MACULAR CYST, HOLE, Diagnosis [place] or pseudohole, left OR PSEUDOHOLE, LEFT 06:00:0 0 AM [facility] eye EYE EDT Care [employer] H33.002 Unspecified retinal UNSPECIFIED RETINAL Diagnosis [place] detachment with DETACHMENT WITH 06:00:00 AM [employer] retinal break, left RETINAL BREAK, LEFT EDT [facility] eye EYE [employer] H43.12 Vitreous hemorrhage, VITREOUS Diagnosis 01/10/2020 [facility] left eye HEMORRHAGE, LEFT 06:00:00 AM [facility] EDT Care Trueffect Z03.818 Encounter for ENCNTR FOR OBS FOR Diagnosis 01/05/2020 [place] observation for SUSP EXPSR TO OTH 01:29:00 PM [employer] suspected exposure BIOLG AGENTS RULED EDT Care to other biological OUT Corpo ration agents ruled out N18.9 Chronic kidney CHRONIC KIDNEY Diagnosis 06/01/2019 [facility] disease, unspecified DISEASE, 04:48:00 PM Med ical Center UNSPECIFIED EST D68.61 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 SYNDROME 04:48:00 PM Medical Cente r EST 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1 Allergy status to ALLERGY STATUS TO Diagnosis 03/11/2019 [place] other antibiotic OTHER ANTIBIOTIC 06:54:00 PM C [email or web address] Health agents status AGENTS STATUS [employer] M06.9 Rheumatoid RHEUMATOID Diagnosis 03/11/2019 [place] arthritis, ARTHRITIS, 06:54:00 PM [facility] unspecified UNSPECIFIED [employer] H57.12 Ocular pain, left OCULAR PAIN, LEFT Diagnosis 03/11/2019 [place] eye EYE 06:54:00 PM [facility] [employer] R91.1 Solitary pulmonary SOLITARY PULMONARY Diagnosis 9 [place] nodule NODULE 06:00:00 AM [facility] [employer] Z87.891 Personal history of PERSONAL HISTORY OF Diagnosis [place] nicotine dependence NICOTINE DEPENDENCE 06:57:0 0 AM [facility] [employer] J44.9 Chronic obstructive CHRONIC OBSTRUCTIVE Diagnosis [place] pulmonary disease, PULMONARY DISEASE, 06:57:00 AM [facility] unspecified UNSPECIFIED [employer] D25.9 Leiomyoma of uterus, LEIOMYOMA OF Diagnosis 12/07/2018 [facility] unspecified UTERUS, UNSPECIFIED 06:57:00 AM [employer] R19.00 Intra-abdominal and INTRA-ABD AND Diagnosis 12/07/2018 We [facility] pelvic swelling, PELVIC SWELLING, 06:57:00 AM C [employer] mass and lump, MASS AND LUMP, UNSP EDT C are unspecified site SITE Corporat ion Z01.818 Encounter for other ENCOUNTER FOR OTHER Diagnosis [address] [place] [address] preprocedural PREPROCEDURAL 01:14:00 PM [facility] examination EXAMINATION RecroupT CoTweet Surgeries/Procedures Procedure Description Date Indications Data Source(s) OFFICE/OUTPATIENT 06/02/2018 SURJIT (April James VISIT, EST 12:00:00 AM EST - Medical Ce nter) 06/02/2018 12:00:00 AM EST DEBRIDE NAIL, 6 OR 06/02/2018 NEXTGEN ( [facility] MORE 12:00:00 AM EST - Medical Ce nter) 06/02/2018 12:00:00 AM EST Results ID Date Data Source [id number] 01/06/2020 12:00:00 AM EDT [facility] Name Value Range Interpretation Code Description Data Yesenia rce(s) Supporting Document(s ) SARS-COV-2 [place] RNA RT-PCR [facility] This lab was ordered by [facility] and reported by [facility]. ID Date Data Source Liver 06/01/2019 04:57:00 PM EST [facility] Profile.[id number] Name Value Range Interpretation Description Data Sup porting Code Source(s) Document(s ) Aspartate 14-36 <content [facility] aminotransferase styleCode="Bold"> Joaquín hs [Enzymatic Aspartate Medical activity/volume] Aminotransferase Center in Serum or Plasma (AST) </content>25 IU/L<content styleCode="Italic s"> (14-36 IU/L)</content> Bilirubin.total 0.2-1.3 Below low <content Saint [Mass/volume] in normal styleCode="Bold"> Joaquín hs Serum or Plasma Bilirubin Total Medical </content>< 0.2 Center MG/DL L<content styleCode="Italic s"> (0.2-1.3 MG/DL)</content> Alkaline 38-126 <content [facility] phosphatase styleCode="Bold"> Erika [Enzymatic Alkaline Medical activity/volume] Phosphatase (ALP) Cente r in Serum or Plasma </content>116 IU/L<content styleCode="Italic s"> (38-126 IU/L)</content> Alanine 7-30 <content [facility] aminotransferase styleCode="Bold"> Jo[place] hs [Enzymatic Alanine Medical activity/volume] Aminotransferase Center in Serum or Plasma (ALT) </content>15 IU/L<content styleCode="Italic s"> (7-30 IU/L)</content> UNK 0.0-0.3 <content Saint styleCode="Bold"> Erika Bilirubin, Direct Medical </content>< 0.2 Center MG/DL<content styleCode="Italic s"> (0.0-0.3 MG/DL)</content> Albumin 3.5-5.0 <content Saint [Mass/volume] in styleCode="Bold"> Joaquín hs Serum or Plasma Albumin Medical </content>4.0 Center G/DL<content styleCode="Italic s"> (3.5-5.0 G/DL)</content> ID Date Data Source GFR(Creatinine).[id number] 06/01/2019 04:57:00 [id number] Name Value Range Interpretation Code Description Data Yesenia rce(s) Supporting Document(s ) UNK > 60 Below low normal <content [facility] styleCode="Bold"> Medical Cent er EGFR </content>20 GFR L<content styleCode="Italic s"> (> 60 GFR)</content> ID Date Data Source [facility].[id number] 06/01/2019 04:57:00 PM EST [facility] Name Value Range Interpretation Description Data Sup porting Code Source(s) Document(s ) Sodium 137-145 <content Saint [Moles/volume] in styleCode="Bold"> Nazario [facility] Serum or Plasma Sodium Medical </content>143 Center MEQ/L<content styleCode="Italic s"> (137-145 MEQ/L)</content> Potassium 3.5-5.3 <content [facility] [Moles/volume] in styleCode="Bold"> Nazario [facility] Serum or Plasma Potassium Medical </content>4.1 Center MEQ/L<content styleCode="Italic s"> (3.5-5.3 MEQ/L)</content> Creatinine 0.5-1.3 Above high <content Saint [Mass/volume] in normal styleCode="Bold"> Joaquín hs Serum or Plasma Creatinine Medical </content>3.2 Center MG/DL H<content styleCode="Italic s"> (0.5-1.3 MG/DL)</content> Chloride 98-107 <content Saint [Moles/volume] in styleCode="Bold"> Nazario phs Serum or Plasma Chloride Medical </content>107 Center MEQ/L<content styleCode="Italic s"> (98-107 MEQ/L)</content> UNK 7-17 Above high <content Saint normal styleCode="Bold"> Erika BUN </content>34 Medical MG/DL H<content Center styleCode="Italic s"> (7-17 MG/DL)</content> Carbon dioxide, 22-30 <content Saint total styleCode="Bold"> Erika [Moles/volume] in Carbon Dioxide Medical Serum or Plasma </content>24 Center MEQ/L<content styleCode="Italic s"> (22-30 MEQ/L)</content> Glucose 74-106 <content Saint [Mass/volume] in styleCode="Bold"> Joaquín hs Serum or Plasma Glucose Medical </content>89 Center MG/DL<content styleCode="Italic s"> (74-106 MG/DL)</content> Calcium 8.4-10. <content [facility] [Mass/volume] in 2 styleCode="Bold"> Joaquín hs Serum or Plasma Calcium Medical </content>9.8 Center MG/DL<content styleCode="Italic s"> (8.4-10.2 MG/DL)</content> Aspartate 14-36 <content [facility] aminotransferase styleCode="Bold"> Joaquín hs [Enzymatic Aspartate Medical activity/volume] Aminotransferase Center in Serum or Plasma (AST) </content>25 IU/L<content styleCode="Italic s"> (14-36 IU/L)</content> UNK > 60 Below low <content Saint normal styleCode="Bold"> Erika EGFR </content>20 Medical GFR L<content Center styleCode="Italic s"> (> 60 GFR)</content> Albumin 3.5-5.0 <content Saint [Mass/volume] in styleCode="Bold"> Joaquín hs Serum or Plasma Albumin Medical </content>4.0 Center G/DL<content styleCode="Italic s"> (3.5-5.0 G/DL)</content> Alkaline 38-126 <content [facility] phosphatase styleCode="Bold"> Erika [Enzymatic Alkaline Medical activity/volume] Phosphatase (ALP) Cente r in Serum or Plasma </content>116 IU/L<content styleCode="Italic s"> (38-126 IU/L)</content> Alanine 7-30 <content [facility] aminotransferase styleCode="Bold"> Joaquín hs [Enzymatic Alanine Medical activity/volume] Aminotransferase Center in Serum or Plasma (ALT) </content>15 IU/L<content styleCode="Italic s"> (7-30 IU/L)</content> Bilirubin.total 0.2-1.3 Below low <content [facility] [Mass/volume] in normal styleCode="Bold"> Joaquín hs Serum or Plasma Bilirubin Total Medical </content>< 0.2 Center MG/DL L<content styleCode="Italic s"> (0.2-1.3 MG/DL)</content> ID Date Data Source [id number] 12/08/2018 08:51:07 AM EDT [facility] [id number] Corporation Name Value Range Interpretation Description Data Sup porting Code Source(s) Document(s ) Erythrocyte 92.3 fL 80.0-9 <td> 12/08/2018 [place] mean 6.0 fL 06:40</td><td> [facility] corpuscular MCV </td><td> Health Care volume Trueffect [Entitic 92.3 volume] by Automated
count (80.0-96.0) fL </td> Erythrocyte 28.0 pg 27.0-3 <td> 12/08/2018 [place] mean 1.5 pg 06:40</td><td> [facility] corpuscular MCH </td><td> Health Care hemoglobin Trueffect [Entitic mass] 28.0 by Automated count
(27.0-31.5) pg </td> Leukocytes 4.3 k/mm3 4.5-10 <td> 12/08/2018 [place] [#/volume] in .8 06:40</td><td> [facility] Blood by k/mm3 WBC Health Care Automated </td><td><[employer] count raph styleCode="Bold "> 4.3 L </paragraph>
(4.5-10.8) k/mm3 </td> Hematocrit 26.4 % 36.0-4 <td> 12/08/2018 [place] [Volume 5.0 % 06:40</td><td> County Fraction] of HCT Health Care Blood by </td><td><[employer] Automated raph count styleCode="Bold "> 26.4 L </paragraph>
(36.0-45.0) % </td> Hemoglobin 8.0 g/dL 11.6-1 <td> 12/08/2018 [place] [Mass/volume] 5.0 06:40</td><td> County in Blood g/dL HGB Health Care </td><td><[employer] raph styleCode="Bold "> 8.0 L </paragraph>
(11.6-15.0) g/dL </td> Erythrocytes 2.86 m/mm3 3.80-5 <td> 12/08/2018 [facility] r [#/volume] in .10 06:40</td><td> County Blood m/mm3 RBC Health Care </td><td><[employer] raph styleCode="Bold "> 2.86 L </paragraph>
(3.80-5.10) m/mm3 </td> Erythrocyte 15.1 % 11.5-1 <td> 12/08/2018 [place] distribution 4.5 % 06:40</td><td> County width [Entitic RDW Health Care volume] by </td><td><[employer] Automated raph count styleCode="Bold "> 15.1 H </paragraph>
(11.5-14.5) % </td> Platelet mean 9.8 fL 9.8-12 <td> 12/08/2018 [facility] r volume .8 fL 06:40</td><td> County [Entitic MPV </td><td> Health Care volume] in Corporation Blood by 9.8 Automated count
(9.8-12.8) fL </td> Platelets 160 k/mm3 160-41 <td> 12/08/2018 [place] [#/volume] in 0 06:40</td><td> [facility] Blood by k/mm3 Platelet Count Health Care Automated </td><td> Corporation count 160
(160-410) k/mm3 </td> Lymphocytes 26.0 % 18.0-5 <td> 12/08/2018 [place] [#/volume] in 3.0 % 06:40</td><td> [facility] Blood by Lymphocytes Health Care Automated </td><td> Corporation count 26.0
(18.0-53.0) % </td> Monocytes/Leuk 6.0 % 0.0-11 <td> 12/08/2018 [facility] er ocytes [Pure .0 % 06:40</td><td> [facility] number Monocytes. Health Care fraction] in </td><td> [facility] Blood by Automated 6.0 count
(0.0-11.0) % </td> Erythrocyte 30.3 % 32.0-3 <td> 12/08/2018 [place] mean 6.0 % 06:40</td><td> [facility] corpuscular [facility] hemoglobin </td><td><bhavna [employer] concentration raph [Mass/volume] styleCode="Bold in Blood from "> Fetus by 30.3 Automated L count </paragraph>
(32.0-36.0) % </td> Basophils+Eosi 4.0 % 0.0-5. <td> 12/08/2018 [facility] er nophils+Monocy 0 % 06:40</td><td> [facility] julia [#/volume] Eosinophils Health Care in Blood by </td><td> [employer] Automated count 4.0
(0.0-5.0) % </td> Anisocytosis Slight <td> 12/08/2018 [place] [Presence] in 06:40</td><td> [facility] Blood by Light Anisocytosis Health Care microscopy </td><td> Corporation Slight
</td> Poikilocytosis Slight <td> 12/08/2018 [facility] er [Presence] in 06:40</td><td> [facility] Blood by Light Poikilocytosis Health Car e microscopy </td><td> [employer] Slight
</td> Basophils 0.0 % 0.0-2. <td> 12/08/2018 [place] [#/volume] in 0 % 06:40</td><td> [facility] Blood by Basophils Health Care Automated </td><td> Corporation count 0.0
(0.0-2.0) % </td> Ovalocytes Few <td> 12/08/2018 [place] [Presence] in 06:40</td><td> [facility] Blood by Light Ovalocytes Health Care microscopy </td><td> [facility] Few
</td> Neutrophils 64.0 % 36.0-7 <td> 12/08/2018 [place] [#] in Body 3.0 % 06:40</td><td> [facility] fluid by Neutrophils Health Care Manual count </td><td> [facility] 64.0
(36.0-73.0) % </td> Potassium 3.8 mEq/L 3.5-5. <td> 12/08/2018 [place] [Moles/volume] 1 06:40</td><td> [facility] in Serum or mEq/L Potassium-Serum Health Care Plasma </td><td> [facility] 3.8
(3.5-5.1) mEq/L </td> Dacrocytes RARE <td> 12/07/2018 [place] [Presence] in 20:24</td><td> [facility] Blood by Light Tear Drop Cells Health Ca re microscopy </td><td> [facility] RARE
</td> Glucose 90 mg/dL 70-105 <td> 12/08/2018 [place] [Mass/volume] mg/dL 06:40</td><td> [facility] in Blood Glucose-Serum Health Care </td><td> [facility] 90
(70-105) mg/dL </td> Schistocytes Occasional <td> 12/08/2018 [place] [Presence] in 06:40</td><td> [facility] Blood by Light Schistocytes Health Care microscopy </td><td> Corporation Occasional
</td> Carbon 22 mEq/L 22-30 <td> 12/08/2018 [place] dioxide, total mEq/L 06:40</td><td> [facility] [Moles/volume] CO2 </td><td> Health Car e in Serum or Corporation Plasma 22
(22-30) mEq/L </td> Chloride 111 mEq/L 98-107 <td> 12/08/2018 [place] [Moles/volume] mEq/L 06:40</td><td> [place] in Serum or Chloride Health Care Plasma </td><td><bhavna [facility] raph styleCode="Bold "> 111 H </paragraph>
(98-107) mEq/L </td> Sodium 140 mEq/L 135-14 <td> 12/08/2018 [place] [Moles/volume] 5 06:40</td><td> [place] in Serum or mEq/L Sodium-Serum Health Care Plasma </td><td> [facility] 140
(135-145) mEq/L </td> Lipemic index No Lipemia <td> 12/08/2018 [facility] er of Serum or 06:40</td><td> [facility] Plasma Lipemia Index Health Care </td><td> [facility] No Lipemia
</td> Anion gap in 7 mEq/L 7-13 <td> 12/08/2018 [place] Serum or mEq/L 06:40</td><td> [facility] Plasma Anion Gap Health Care </td><td> [facility] 7
(7-13) mEq/L </td> Calcium 8.4 mg/dL 8.6-10 <td> 12/08/2018 [place] [Mass/volume] .2 06:40</td><td> [place] in Blood mg/dL Calcium Health Care </td><td><[employer] raph styleCode="Bold "> 8.4 L </paragraph>
(8.6-10.2) mg/dL </td> Creatinine 1.77 mg/dL 0.57-1 <td> 12/08/2018 [place] [Moles/volume] .11 06:40</td><td> [place] in Serum or mg/dL Creatinine. Health Care Plasma </td><td><[facility]havna [employer] raph styleCode="Bold "> 1.77 H </paragraph>
(0.57-1.11) mg/dL </td> Hemolysis No <td> 12/08/2018 [place] index of Serum Hemolysis 06:40</td><td> [facility] or Plasma Hemolysis Index Health Care </td><td> [facility] No Hemolysis
</td> Urea nitrogen 19 mg/dL 6-22 <td> 12/08/2018 [facility] r [Mass/volume] mg/dL 06:40</td><td> [place] in Blood BUN </td><td> [facility] 19
(6-22) mg/dL </td> Magnesium 1.7 mg/dL 1.6-2. <td> 12/08/2018 [place] [Mass/volume] 6 06:40</td><td> [place] in Serum or mg/dL Magnesium Level Health Care Plasma </td><td> [facility] 1.7
(1.6-2.6) mg/dL </td> Phosphate 3.1 mg/dL 2.3-4. <td> 12/08/2018 [place] [Mass/volume] 7 06:40</td><td> [place] in Serum or mg/dL Inorganic Health Care Plasma Phosphorus [facility] </td><td> 3.1
(2.3-4.7) mg/dL </td> Icteric index Not Icteric <td> 12/08/[address] [facility] [address] of Serum or 06:40</td><td> County Plasma Icteric Index Health Care </td><td> [facility] Not Icteric
</td> Procedure Social History Code Duration Value Status Description Data Source(s ) Caffeine Use 06/02/2018 completed NEXTGEN (Sb nt Details 12:00:00 AM [facility]) Smoking 06/02/2018 Unknown if completed Unknown if ever NEXTGEN ( 12:00:00 AM ever smoked smoked [facility]) Smoking Unknown if completed Unknown if ever [facility] ever smoked smoked [facility] Smoking Never smoker completed Never smoker [facility] Corpor[facility] on Alcohol Use completed NEXTGEN ([facility]) Vital Signs ID Date Data Source UNK Name Value Range Interpretation Code Description Data Source(s) Diastolic blood 66 {} Normal (applies to 66 {} [place] pressure non-numeric results) [facility] on Systolic blood 112 {} Normal (applies to 112 {} [place] pressure non-numeric results) [facility] on First Respiration 17.0000 {} Normal (applies to 17.0000 {} [place] rate Set non-numeric results) [facility] ty [facility] on Heart rate 75.0000 {} Normal (applies to 75.0000 {} [place] non-numeric results) [facility] ty [facility] on Body temperature 98.7000 {} Normal (applies to 98.7000 {} [place] non-numeric results) [facility] ty [facility] on Diastolic blood 91 {} Normal (applies to 91 {} [place] pressure non-numeric results) [facility] ty [facility] on Systolic blood 164 {} Normal (applies to 164 {} [place] pressure non-numeric results) [facility] ty [facility] Corpor[facility] on First Respiration 17.0000 {} Normal (applies to 17.0000 {} [place] rate Set non-numeric results) [facility] ty [facility] on Heart rate 65.0000 {} Normal (applies to 65.0000 {} [place] non-numeric results) [facility] on Body temperature 98.6000 {} Normal (applies to 98.6000 {} [place] non-numeric results) [facility] on wt - obtain Normal (applies to {} [facility] [place] non-numeric results) [facility] on weight - kg 95.0000 {} Normal (applies to 95.0000 {} [facility] non-numeric results) [facility] ty [facility] Corpor[facility] on Body surface area 2.14 m2 2.14 m2 NEXTGEN ([facility] from [facility]) Body mass index 36.64 kg/m2 Overweight 36.64 kg/m2 NEXTGEN ([facility] (BMI) [Ratio] [facility] Body temperature 37.00 Odilia 37.00 Odilia NEXTGEN ([facility]) Body weight 99.881 kg 99.881 kg [facility] ([facility]) Body height 165.10 cm 165.10 cm [facility] ([facility]) Patient Treatment Plan of Care Planned Activity Planned Date Details Description Data Source (s) Tropicamide 0.5 % op 03/11/2019 [facility] 08:35:57 PM [facility] Phenylephrine HCL 2. 03/11/2019 [facility] 08:35:57 PM [facility] Clotrimazole 10 MG/ML 06/02/2018 [facility] N ([facility] Topical Solution 12:00:00 AM [facility])
--- NOTE | 2020-02-10 02:27 | PDOC ---
Attending Attestation - Resident Resident Name: Cirilo Carr - ED Attending Attestation I have performed the following: I have examined & evaluated the patient, The case was reviewed & discussed with the resident, I agree w/resident's findings & plan - HPI HPI: 02/10/20 03:10 Pt felt a tingling of her left leg at home and she became anxious. States that she worried that she was having a stroke, because her mom had a brain aneurysm. Pt has obesity (she gained 15-20 lbs during covid) and she has COPD and HTN and asthma and psoriasis. States that she doesn't smoke (quit in 2007) and she has no drugs use or alcohol use. Pt has no jobs. She hasnt been out fo her house because she is afraid of getting covid and she lives with her daughter and soninlaw and she orders out and has been sedentary. She admits to being anxious and working herself up - Physicial Exam PE: 02/10/20 03:14 Normal neuro exam; strength and sensory intact A+Ox3 Pt hasexternal; rotation of her left eye due to weak eye muscles (she has double vision) otherwise HEENT normal Pt has normal heart and lungs no flank pain skin: psoriatic black discoid lesions of varying sizes all over her body and extremities most on the low back Agree with resident exam - Medical Decision Making 02/10/20 03:06 Pt has been reassured. SHe is feeling better. She just had blood and urine testing through lab [employer] 02/10/20 03:16 Stable to go home without testing in the ER. Pt is okay with this assessment and she agrees and is relieved. She will take a cab home. Discharge - Discharge Information Problems reviewed: Yes Clinical Impression/Diagnosis: Abnormal sensation of lower extremity Condition: Good Disposition: HOME - Follow up/Referral Referrals: Blayne Cruz MD [Primary Care Provider] - - Patient Discharge Instructions Additional Instructions: Your examination was reassuring. Follow up with your primary care doctor in the next 10 days. Follow up with your kidney doctor and cable way operator as scheduled. Continue your home medications as prescribed. Return to the Emergency Department if you experience new, worsening, or concerning symptoms, including but not limited to: - shortness of breath - severe pain - loss of movement or sensation to any extremity - Post Discharge Activity
--- NOTE | 2020-02-10 02:41 | PDOC ---
History of Present Illness - General Chief Complaint: Pain, Acute Stated Complaint: LEFT LEG PAIN Time Seen by Provider: 02/10/20 01:58 History Source: Patient Exam Limitations: No Limitations - History of Present Illness Initial Comments: 02/10/20 02:30 49F PMH SLE on cellcept, HTN, and APLS on warfarin w/ LLE IVC filter BIBEMS from home for evaluation of transient LLE sensation that woke her up from sleep. Poorly described sensation moving up from the back of the foot up the leg lasting about 2 minutes. Pt never experienced this sensation before and wanted eval. No pain. No vision changes though has chronic diplopia 2/2 exotropia, numbness, weakness, cp/sob, abd pain, n/v. Allergies reviewed. Past History - Medical History Allergies/Adverse Reactions: Allergies Allergy/AdvReac Type Severity Reaction Status Date / Time aspirin Allergy Verified 02/10/20 02:08 ciprofloxacin [From Cipro] Allergy Verified 02/10/20 02:08 ciprofloxacin HCl Allergy Verified 02/10/20 02:08 [From Cipro] Home Medications: Ambulatory Orders Acetaminophen [Tylenol] 650 mg PO DAILY PRN 12/01/17 Albuterol Sulfate Inhaler - [Ventolin HFA Inhaler -] 1 puff IH DAILY 12/01/17 Amlodipine Besylate [Norvasc -] 5 mg PO DAILY 12/01/17 Hydroxychloroquine Sulfate [Plaquenil] 200 mg PO BID 12/01/17 Losartan Potassium 25 mg PO DAILY 12/01/17 Montelukast Sodium [Singulair] 10 mg PO DAILY 12/01/17 Pantoprazole Sodium [Protonix] 40 mg PO DAILY 12/01/17 Warfarin Sodium [Coumadin] 10 mg PO DAILY 12/01/17 Betamethasone Valerate TP DAILY 12/22/19 Anemia: Yes Asthma: Yes Cancer: No Cardiac Disorders: No CVA: No COPD: No CHF: No Dementia: No Diabetes: No GI Disorders: No Disorders: No HTN: Yes Hypercholesterolemia: No Liver Disease: No Seizures: No Thyroid Disease: No - Surgical History Abdominal Surgery: No Appendectomy: No Cardiac Surgery: No Cholecystectomy: No Lung Surgery: No Neurologic Surgery: No Orthopedic Surgery: Yes - Reproductive History Is Patient Now?: No - Immunization History Td Vaccination: No TDAP Vaccination: No Immunization Up to Date: No - Psycho-Social/Smoking History Smoking Status: No Smoking History: Former smoker Years of Tobacco Use: 20 Have you smoked in the past 12 months: No Number of Cigarettes Smoked Daily: 0 If you are a former smoker, when did you quit?: 2007 Information on smoking cessation initiated: No - Substance Abuse Hx (Audit-C & DAST Scrn) How often the patient has a drink containing alcohol: Never Score: In Men: 4 or > Positive; In Women: 3 or > Positive: 0 Screen Result (Pos requires Nsg. Audit-10AR): Negative Review of Systems - Review of Systems Comments:: CONSTITUTIONAL: Denies F / C HEENT: chronic unchanged diplopia. RESP: Denies SOB CARD: Denies chest pain, palpitations GI: Denies N / V / D, abdominal pain, bloody stool, inability to tolerate PO : Denies dysuria NEURO: + transient sensation of LLE. Denies numbness, weakness SKIN: Denies rashes *Physical Exam - Vital Signs Last Vital Signs Temp Pulse Resp BP Pulse Ox 98.0 F 96 H 18 130/78 99 02/10/20 01:57 02/10/20 01:57 02/10/20 01:57 02/10/20 01:57 02/10/20 01:57 - Physical Exam GEN: Well appearing, comfortable. AAOx3. HEENT: NC/AT, EOMI, PERRL, extropia, CN II-XII grossly intact. No facial asymmetry. Normal voice. Supple neck w/ FROM. CV: S1/S2, RRR, no m/r/g LUNG: CTAB, no wheezes, crackles, rales, rhonchi. GI: Soft, ndnt, +BS, no guarding, no rebound. MSK: No LE edema. No calf TTP. No obvious deformities of all extremities. SKIN: Warm, dry PSYCH: anxious o/w normal mood and affect; pleasant NEURO: Moving all extremities well. 5/5 UE and LE strength. Symmetric sensation. No FTN or heel urrutia ataxia. Ambulates w/ normal gait. Medical Decision Making - Medical Decision Making 49F PMH SLE, APLS, HTN BIBEMS from home for transient odd sensation of the LLE lasting about 2 minutes w/o other neurological changes. Neuro intact exam. No edema or leg tenderness. Reassure and discharge home. Discharge - Discharge Information Problems reviewed: Yes Clinical Impression/Diagnosis: Abnormal sensation of lower extremity Condition: Good Disposition: HOME - Admission No - Follow up/Referral Referrals: Blayne Cruz MD [Primary Care Provider] - - Patient Discharge Instructions Additional Instructions: Your examination was reassuring. Follow up with your primary care doctor in the next 10 days. Follow up with your kidney doctor and well reactivator operator as scheduled. Continue your home medications as prescribed. Return to the Emergency Department if you experience new, worsening, or concerning symptoms, including but not limited to: - shortness of breath - severe pain - loss of movement or sensation to any extremity - Post Discharge Activity
[2020-02-10 03:46] VITALS: BP 130/78; PULSE 96; TEMP 98; BMI 35.7
== END 2020-02-10 03:10 | disposition home or self-care (01) ==
LOC: JER 01:49
DX: R20.9 Unspecified disturbances of skin sensation (principal)
CPT/HCPCS: 99282-25

== ENCOUNTER 2020-05-23 18:06 | Emergency (ER) | payer OTHER ==
[2020-05-23 18:22] VITALS: BMI 35.5
[2020-05-23 23:14] LABS: INR 2.47 (0.83-1.09); PROTHROMBIN TIME (PATIENT) 29.6 SEC (9.7-13.0)
[2020-05-23] MEDS ORDERED: ACETAMINOPHEN 325 MG TABLET (FP) PO ONE (23:39)
[2020-05-23] MEDS ORDERED: ACETAMINOPHEN 325 MG TABLET (FP) ONE (23:57)
[2020-05-24 00:14] VITALS: BP 146/86; PULSE 76; TEMP 98.3
== END 2020-05-24 00:19 | disposition home or self-care (01) ==
LOC: JER 18:06
DX: I87.2 Venous insufficiency (chronic) (peripheral) (principal)
CPT/HCPCS: 36415; 85610; 93971-TC; 99284-25

== ENCOUNTER 2021-03-02 00:21 | Emergency (ER) | payer OTHER ==
[2021-03-02 00:41] VITALS: BP 155/100; PULSE 78; BMI 34.1
[2021-03-02] MEDS ORDERED: ONDANSETRON 4 MG/2 ML VIAL IVPUSH ONE (01:38)
[2021-03-02] MEDS ORDERED: ONDANSETRON 4 MG/2 ML VIAL ONE (02:03)
[2021-03-02 02:59] LABS: INR 0.97 (0.83-1.09); PROTHROMBIN TIME (PATIENT) 10.9 SEC (9.7-13.0)
[2021-03-02 03:00] LABS: CHLORIDE 115 mmol/L (98-107); SODIUM 142 mmol/L (136-145)
[2021-03-02 03:04] LABS: ALBUMIN 3.2 g/dl (3.4-5.0); ANION GAP 4 MMOL/L (8-16); BLOOD UREA NITROGEN 36.2 mg/dL (7-18); CO2 22 mmol/L (21-32); GLUCOSE,RANDOM 78 mg/dL (74-106)
[2021-03-02 03:07] LABS: CREATININE 1.7 mg/dL (0.55-1.3); SGOT/AST 26 U/L (15-37); SGPT/ALT 19 U/L (13-61)
[2021-03-02 03:08] LABS: BILIRUBIN,TOTAL 0.2 mg/dL (0.2-1); TOT PROT 7.3 g/dl (6.4-8.2)
[2021-03-02 03:09] LABS: ALK PHOS 116 U/L (45-117)
[2021-03-02 03:53] LABS: ACTIVATED PTT 16.6 SECONDS (25.2-36.5)
== END 2021-03-02 04:39 | disposition home or self-care (01) ==
LOC: JER 00:21
PROC: 3E033GC Introduction of Other Therapeutic Substance into Peripheral Vein, Percutaneous Approach (ICD-10-PCS; principal; 2021-03-02)
DX: R05.9 Cough, unspecified (principal)
CPT/HCPCS: 36415; 71046-TC-FY; 80053; 82550; 82553; 84484; 85610; 85730; 93005; 93010; 96374; 99285-25; C9803; U0003; U0005

== ENCOUNTER 2021-10-09 12:38 | Emergency (ER) | payer OTHER ==
[2021-10-09 13:02] VITALS: TEMP 97.8
[2021-10-09 14:26] LABS: BASO % 0.4 % (0-2.0); EOS % 4.4 % (0-4.5); HEMATOCRIT 35.3 % (32.4-45.2); HEMOGLOBIN 11.2 GM/dL (10.7-15.3); LYMPH % 32.8 % (8-40); MCHC 31.6 g/dl (32.0-36.0); MEAN CELL VOLUME 88.8 fl (80-96); MEAN PLT VOLUME 8.6 fl (7.5-11.1); MONO % 15.7 % (3.8-10.2); NEUT % 46.7 % (42.8-82.8); PLATELET COUNT 170 10^3/uL (134-434); RBC 3.98 M/mm3 (3.60-5.2); RDW 16.9 % (11.6-15.6); WHITE BLOOD COUNT 2.7 K/mm3 (4.0-10.0)
[2021-10-09 14:34] VITALS: BMI 42.9
[2021-10-09 14:37] LABS: ACTIVATED PTT 34.9 SECONDS (25.2-36.5); INR 1.5 (0.83-1.09); PROTHROMBIN TIME (PATIENT) 17.3 SEC (9.7-13.0)
[2021-10-09 14:47] LABS: BLOOD UREA NITROGEN 23.7 mg/dL (7-18); CALCIUM 8.8 mg/dL (8.5-10.1)
[2021-10-09 14:49] LABS: ALBUMIN 3.3 g/dl (3.4-5.0)
[2021-10-09 14:52] LABS: CREATININE 1.9 mg/dL (0.55-1.3)
[2021-10-09 14:53] LABS: BILIRUBIN,TOTAL 0.2 mg/dL (0.2-1); TOT PROT 7.3 g/dl (6.4-8.2)
[2021-10-09] MEDS ORDERED: WARFARIN NA 10 MG TABLET PO ONE (20:54)
[2021-10-09] MEDS ORDERED: WARFARIN NA 1 MG TABLET ONE (21:00)
[2021-10-09] MEDS ORDERED: WARFARIN NA 5 MG TABLET ONE (21:00)
[2021-10-09 21:41] VITALS: BP 148/85; PULSE 82
== END 2021-10-09 21:41 | disposition home or self-care (01) ==
LOC: JER 12:38
DX: R06.02 Shortness of breath (principal); R07.9 Chest pain, unspecified
CPT/HCPCS: 36415; 71046-TC-FY; 71275-TC; 80053; 84484; 85025; 85610; 85730; 93005; 93010; 99285-25; C9803-CS; U0003; U0005

== ENCOUNTER 2022-04-07 13:29 | Emergency (ER) | payer OTHER ==
[2022-04-07 14:07] VITALS: BP 159/88; PULSE 84; RESP 18; TEMP 98; BMI 37.4
[2022-04-07] MEDS ORDERED: ACETAMINOPHEN INJECTION 100 ML IVPB ONE (15:33)
[2022-04-07 16:35] LABS: BASO % 0.4 % (0-2.0); EOS % 0.2 % (0-4.5); HEMATOCRIT 30.3 % (32.4-45.2); HEMOGLOBIN 9.6 GM/dL (10.7-15.3); LYMPH % 9.1 % (8-40); MCH 29.5 pg (25.7-33.7); MCHC 31.6 g/dl (32.0-36.0); MEAN CELL VOLUME 93.5 fl (80-96); MEAN PLT VOLUME 7.6 fl (7.5-11.1); MONO % 4.1 % (3.8-10.2); NEUT % 86.2 % (42.8-82.8); PLATELET COUNT 176 10^3/uL (134-434); RBC 3.24 M/mm3 (3.60-5.2); RDW 20.2 % (11.6-15.6); WHITE BLOOD COUNT 4.6 K/mm3 (4.0-10.0)
[2022-04-07 16:44] LABS: INR 3.03 (0.83-1.09); PROTHROMBIN TIME (PATIENT) 35.2 SEC (9.7-13.0)
[2022-04-07 16:47] LABS: ACTIVATED PTT 32.1 SECONDS (25.2-36.5)
[2022-04-07 16:58] LABS: CALCIUM 8.5 mg/dL (8.5-10.1)
[2022-04-07 16:59] LABS: ALBUMIN 3.1 g/dl (3.4-5.0); BLOOD UREA NITROGEN 42.1 mg/dL (7-18)
[2022-04-07 17:04] LABS: BILIRUBIN,TOTAL 0.3 mg/dL (0.2-1); TOT PROT 6.9 g/dl (6.4-8.2)
[2022-04-07 17:16] LABS: N-TERMINAL BNP 1305.3 pg/ml (5-125)
== END 2022-04-07 18:35 | disposition home or self-care (01) ==
LOC: JER 13:29
DX: M79.89 Other specified soft tissue disorders (principal)
CPT/HCPCS: 0241U-QW; 36415; 71045-TC-FY; 80053; 83880; 85025; 85610; 85730; 93970-TC; 99284-25

== ENCOUNTER 2023-05-08 13:04 | Emergency (ER) | payer BC, OTHER ==
[2023-05-08 13:09] VITALS: BP 121/76; PULSE 63; RESP 18; TEMP 97; BMI 38.2
== END 2023-05-08 15:27 | disposition home or self-care (01) ==
LOC: JERFT 13:04 → JER 13:04 → JERFT 15:27
DX: S80.811A Abrasion, right lower leg, initial encounter (principal); X58.XXXA Exposure to other specified factors, initial encounter
CPT/HCPCS: 99282-25